=== PATIENT | male | born 1975 | race African-American/Black ===

== ENCOUNTER 2017-07-05 19:41 | Emergency (ER) | payer OTHER, SELFPAY ==
[2017-07-05 21:20] LABS: Bilirubin Negative (Negative); Clarity CLEAR (Clear); Glucose, Urine (Dipstick) Negative (Negative); Leukocyte Small (Negative); Nitrite Negative (Negative); Protein, Urine (Dipstick) Negative (Neg-Trace); Specific Gravity, Urine 1.025 (1.002-1.036)
[2017-07-05 21:22] LABS: Bacteria/HPF None Seen HPF (None Seen); Hyaline Casts/LPF 0-3 HYALINE CAST LPF (0-3 Hyaline); Pathc Cast-AUWi Flag 0.13 (0-2.49); Squamous Epithelial 0-3 HPF (0-3)
[2017-07-05 21:31] LABS: Blood, Urine Trace (Negative); RBC/HPF 0-3 HPF (0-3)
[2017-07-05] MEDS ORDERED: traMADol HCl 50 MG TAB ONE (21:53)
[2017-07-07 22:13] LABS: Chlamydia by PCR Not Detected (NotDetected); GC by PCR Not Detected (NotDetected)
== END 2017-07-05 22:33 | disposition home or self-care (01) ==
LOC: ERS 19:41
DX: M54.5 Low back pain (principal); R31.29 Other microscopic hematuria; F17.210 Nicotine dependence, cigarettes, uncomplicated
CPT/HCPCS: 81003; 81015; 87086; 87491; 87591; 99283

== ENCOUNTER 2017-08-23 15:24 | Emergency (ER) | payer SELFPAY ==
[2017-08-23 16:43] LABS: #Basophils 0.1 thou/uL (0.0-0.2); #Eosinphils 0.2 thou/uL (0.0-0.7); #Lymphocytes 4.3 thou/uL (1.20-3.40); #Monocytes 0.6 thou/uL (0.11-0.59); #Neutrophils 5.8 thou/uL (1.40-6.50); %Basophils 1.2 % (0.0-1.0); %Eosinophils 1.9 % (0.0-10.0); %Monocytes 5.2 % (0.0-10.0); %Neutrophils 52.7 % (42.0-75.0); Mean Corpuscular HGB CONC 33.2 g/dL (32.0-36.0); Mean Corpuscular Hemoglobin 33.2 pg (27.0-31.0); Mean Corpuscular Volume 99.9 fl (80.0-94.0); Mean Platelet Volume 7.6 fL (7.4-10.4); Platelet Count 190 thou/uL (130-400); Red Blood Cell (RBC) Count 5.12 mill/uL (4.70-6.10); White Blood Cell (WBC) Count 10.9 thou/uL (4.8-10.8)
[2017-08-23] MEDS ORDERED: Gabapentin 100 MG CAP PO SCH (16:45)
--- NOTE | 2017-08-23 16:50 | RAD ---
LEFT FOOT THREE VIEWS: 08/23/17 HISTORY: Left foot pain. Cellulitis. COMPARISON: 07/25/16. FINDINGS: Amputation of the big toe is apparent. Lisfranc joint alignment is anatomic. Pes planus is evident on the lateral view. No acute fracture, dislocation, or aggressive osseous erosions are apparent. No soft tissue gas is vi sible. IMPRESSION: Postoperative changes. No evidence of complication. POS: [facility]
[2017-08-23] MEDS ORDERED: Acetaminophen/Codeine 30-300mg Tablet ONE ×2 (16:53→16:57)
[2017-08-23 17:09] LABS: ALT (SGPT) 16 U/L (8-55); AST (SGOT) 15 U/L (5-34); Albumin 4.2 g/dL (3.5-5.0); Alkaline Phosphatase 72 U/L (40-150); Anion Gap 10 mmol/L (10-20); BUN (Urea Nitrogen) 9 mg/dL (8.9-20.6); Bilirubin, Total 0.4 mg/dL (0.2-1.2); Calc. Creatinine Clearance 0 mL/min (70-130); Calcium 9.6 mg/dL (7.8-10.44); Carbon Dioxide 26 mmol/L (22-29); Chloride 105 mmol/L (98-107); Estimated GFR-MDRD Greater than 90; Globulin 3.7 g/dL (2.4-3.5); Glucose 82 mg/dL (70-105); Potassium 3.9 mmol/L (3.5-5.1); Protein, Total 7.9 g/dL (6.0-8.3); Sodium 137 mmol/L (136-145)
== END 2017-08-23 17:33 | disposition home or self-care (01) ==
LOC: ERS 15:24
DX: G62.9 Polyneuropathy, unspecified (principal); I73.9 Peripheral vascular disease, unspecified; F17.210 Nicotine dependence, cigarettes, uncomplicated; Z71.6 Tobacco abuse counseling
CPT/HCPCS: 36415; 80053; 83605; 85025; 99406

== ENCOUNTER 2017-10-03 15:16 | Inpatient (IN) | payer SELFPAY ==
[2017-10-03 16:15] LABS: #Basophils 0.1 thou/uL (0.0-0.2); #Eosinphils 0.2 thou/uL (0.0-0.7); #Lymphocytes 3.8 thou/uL (1.20-3.40); #Monocytes 0.5 thou/uL (0.11-0.59); #Neutrophils 5.3 thou/uL (1.40-6.50); %Basophils 0.8 % (0.0-1.0); %Eosinophils 2.3 % (0.0-10.0); %Lymphocytes 38.2 % (21.0-51.0); %Monocytes 4.7 % (0.0-10.0); %Neutrophils 54.1 % (42.0-75.0); Hemoglobin 16.6 g/dL (14.0-18.0); Mean Corpuscular HGB CONC 33.8 g/dL (32.0-36.0); Mean Corpuscular Hemoglobin 33.1 pg (27.0-31.0); Mean Corpuscular Volume 98.1 fl (80.0-94.0); Platelet Count 190 thou/uL (130-400); RBC Distribution Width 13.3 % (11.5-14.5); White Blood Cell (WBC) Count 9.8 thou/uL (4.8-10.8)
[2017-10-03 16:35] LABS: ALT (SGPT) 11 U/L (8-55); AST (SGOT) 15 U/L (5-34); Albumin 4.3 g/dL (3.5-5.0); Alkaline Phosphatase 70 U/L (40-150); Anion Gap 12 mmol/L (10-20); BUN (Urea Nitrogen) 6 mg/dL (8.9-20.6); Bilirubin, Total 0.4 mg/dL (0.2-1.2); Calc. Creatinine Clearance 0 mL/min (70-130); Calcium 9.7 mg/dL (7.8-10.44); Carbon Dioxide 26 mmol/L (22-29); Chloride 103 mmol/L (98-107); Estimated GFR-MDRD Greater than 90; Globulin 3.3 g/dL (2.4-3.5); Glucose 92 mg/dL (70-105); Potassium 3.7 mmol/L (3.5-5.1); Protein, Total 7.6 g/dL (6.0-8.3); Sodium 137 mmol/L (136-145)
--- NOTE | 2017-10-03 17:07 | RAD ---
THREE VIEWS OF THE LEFT TOES 10/03/17 HISTORY: Pain. FINDINGS: The patient is status post amputation of the great toe at the first metatarsophalangeal joint. There is soft tissue swelling involving the distal aspect of the second toe. On the lateral examinati on, there is soft tissue irregularity at the tip of the distal phalanx of the second toe suggesting a n ulceration. No obvious bone destruction, fracture or dislocation. IMPRESSION: Soft tissue swelling of the second toe distally with probable ulceration. Findings are suspicious for cellulitis. If there is clinical concern for osteomyelitis, MRI of left foot with and without IV con trast advised. POS: [facility]
[2017-10-03] MEDS ORDERED: HYDROcodone/Acetaminophen 5/325 mg Tablet ONE (18:16)
[2017-10-03] MEDS ORDERED: HYDROcodone/Acetaminophen 10/325 mg Tablet PO PRN (19:11)
[2017-10-03] MEDS ORDERED: Morphine 4 MG/ML VIAL SLOW IVP PRN (19:14)
[2017-10-03] MEDS ORDERED: Clindamycin 150 MG CAP PO SCH (21:00)
[2017-10-03] MEDS ORDERED: Morphine 4 MG/ML VIAL ONE (21:36)
[2017-10-03] MEDS ORDERED: Vancomycin HCl 1 GM in Sodium Chloride 0.9% 250 ML 250 ML IVPB SCH (22:00)
--- NOTE | 2017-10-03 22:03 | PDOC.FPRHP ---
- History of Present Illness Chief Complaint: toe pain History of Present Illness: Cortes Villegas is a 42 year old M with PMH of HLD and PVD s/p left great toe amputation and left common iliac stent placed in September [address] Van, CV surgery. He presents with a one month history of left 2nd toe pain. He went ED one month ago, was given course of antibiotics which improved the pain for a short time. The pain has worsened, described as constant, achy pain, worse with ambulation or standing. ED provider was able to obtain cultures from wound on toe. Denies fevers, chills, night sweats. Denies leg pain with exertion. Patient does not have a primary care doctor and does not take any medications. ED Course: Patient received morphine 2 mg - Allergies/Adverse Reactions Allergies Allergy/AdvReac Type Severity Reaction Status Date / Time No Known Allergies Allergy Verified 10/04/17 05:30 - Home Medications Comments: Patient takes no medications. - History PMHx: Hyperlipidemia, PVD PSHx: left common iliac stent and left great toe amputation in September of 2016 FHx: unknown Social: patient has a 20 pack year history, denies alcohol, drug use - Review of Systems General: denies: fever/chills, weight/appetite/sleep changes, night sweats Eyes: denies: eye pain, vision changes ENT: denies: nasal congestion, rhinorrhea Respiratory: denies: cough, congestion, shortness of breath Cardiovascular: denies: chest pain, palpitation, edema, paroxysmal nocturnal dyspnea Gastrointestinal: denies: nausea, vomiting, diarrhea, constipation Genitourinary: denies: incontinence, dysuria, polyuria Skin: denies: rashes, lesions, jaundice Musculoskeletal: reports: pain, tenderness, stiffness, swelling Psychological: denies: anxiety, depression - Vital signs BP: 146/91 HR: 84 RR: 18 Tmax: 98.8 Pox: 97% on RA Wt: 74 kg - Physical Exam Constitutional: NAD, awake, alert and oriented, well developed HEENT: normocephalic and atraumatic, PERRLA, EOMI, conjunctiva clear, no scleral icterus, grossly normal vision, TM's clear and intact, grossly normal hearing, normal nasal mucosa, MMM, oropharynx clear Neck: supple, FROM, trachea midline, no JVD Heart: RRR, normal S1/S2, no murmurs/rubs/gallops Lungs: CTAB, no respiratory distress, good air movement, no rales/rhonchi, no wheezing Abdomen: soft, non-tender, bowel sounds present, no masses/distention Musculoskeletal: normal tone, ROM grossly normal -Musculoskeletal: left great toe amputated. Black eschar on plantar portion of left second toe with tenderness to palpation. No pain with passive movement of toe. Decreased pulses on left lower extremity, normal pulses on right LE Neurological: no focal deficit, CN II-XII intact, normal sensation Skin: no rash/lesions, good turgor Heme/Lymphatic: no unusual bruising or bleeding, no purpura, no petechia Psychiatric: normal mood and affect, good judgment and insight, intact recent and remote memory FMR H&P: Results - Labs Result Diagrams: 10/04/17 04:31 10/04/17 04:31 Lab results: WBC 9.8 thou/uL (4.8-10.8) 10/03/17 16:03 Hgb 16.6 g/dL (14.0-18.0) 10/03/17 16:03 Hct 49.0 % (42.0-52.0) 10/03/17 16:03 MCV 98.1 fl (80.0-94.0) H 10/03/17 16:03 Plt Count 190 thou/uL (130-400) 10/03/17 16:03 Neutrophils % 54.1 % (42.0-75.0) 10/03/17 16:03 Sodium 137 mmol/L (136-145) 10/03/17 16:03 Potassium 3.7 mmol/L (3.5-5.1) 10/03/17 16:03 Chloride 103 mmol/L (98-107) 10/03/17 16:03 Carbon Dioxide 26 mmol/L (22-29) 10/03/17 16:03 BUN 6 mg/dL (8.9-20.6) L 10/03/17 16:03 Creatinine 1.02 mg/dL (0.6-1.3) 10/03/17 16:03 Glucose 92 mg/dL (70-105) 10/03/17 16:03 Calcium 9.7 mg/dL (7.8-10.44) 10/03/17 16:03 Total Bilirubin 0.4 mg/dL (0.2-1.2) 10/03/17 16:03 AST 15 U/L (5-34) 10/03/17 16:03 ALT 11 U/L (8-55) 10/03/17 16:03 Alkaline Phosphatase 70 U/L (40-150) 10/03/17 16:03 Serum Total Protein 7.6 g/dL (6.0-8.3) 10/03/17 16:03 Albumin 4.3 g/dL (3.5-5.0) 10/03/17 16:03 FMR H&P: A/P - Problem List (1) Dry gangrene Current Visit: Yes Status: Acute Code(s): I96 - GANGRENE, NOT ELSEWHERE CLASSIFIED (2) Cellulitis Current Visit: Yes Status: Acute Code(s): L03.90 - CELLULITIS, UNSPECIFIED (3) Peripheral vascular disease Current Visit: Yes Status: Chronic Code(s): I73.9 - PERIPHERAL VASCULAR DISEASE, UNSPECIFIED (4) Tobacco abuse Current Visit: Yes Status: Chronic Code(s): Z72.0 - TOBACCO USE - Plan (1) Dry Gangrene on left second toe: History of PVD s/p left great toe amputation and left common iliac stent placement in 2016, performed by Dr. Van. Admit to medical. Toe appear to have surrounding cellulitis. No evidence of osteomyelitis on imaging. Checking ESR. Start treatment with IV vancomycin. Consult CV surgery in the morning. Ordered Ankle-Brachial Index. Ordered doppler US of left LE. Ordered transcutaneous O2 on left LE. Started patient on statin and asa. Blood cultures pending. (2) Cellulitis of left second toe: Starting tx with IV vancomycin. Wound cultures taken in ED, gram stain showed gram positive cocci in pairs. Culture pending. (3) Peripheral Vascular Disease: Patient has no been taking any medications. Starting high dose statin and aspirin. Checking FLP. (4) Tobacco Abuse: Encouraged cessation (5) Activity: ad lori (6) Diet: NPO at midnight CODE STATUS: FULL CODE FMR H&P: Upper Level - Pertinent history 42 yO AAM with pmhx tobacco abuse & PVD s/p left great toe amputation and left common iliac stent placement 1 year ago who p/w 1 month h/o 2nd toe pain on the left foot. Seen in ED initially 4 wks ago, given bactrim and had initial improvement in pain; however, pain has worsened over the last 2 wks. States it is constant, aching pain and is worse with ambulation. No associated fevers, chills, night sweats, n/v, lymphadenopathy. Denies claudication symptoms. Pt otherwise has not seen a doctor regularly, takes no meds. Unknown Fhx. Social hx sig for 30+ pk yr hx. - Pertinent findings Laboratory Tests 10/03/17 10/03/17 16:03 16:03 WBC 9.8 Hgb 16.6 MCV 98.1 H Plt Count 190 Creatinine 1.02 Estimated GFR (MDRD) Greater than 90 LLE xray- soft tissue edema and ulceration. no obvious signs of osteomyelitis. Sig PE- gen- A&O x 3, nad, well appearing CV- rrr no mrg lungs- ctab abd- soft non-tender LE- non-palpable left post tibial or dorsalis pedis pulse. strong palpable pulses on RLE. no edema or cyanosis. Left 2nd toe with ulceration and black eschar on plantar surface of toe. wound cx performed per ED physician. - Plan Date/Time: 10/03/17 2156 42yo AAM with pmhx PAD s/p stent & amputation p/w- 1) Left 2nd Toe Dry Gangrene- check CHAMP, transcutaneous O2 and arterial US to LLE. concerned w/ nonpalpable pulse to distal LLE and prior h/o amputation & iliac artery stent placement. will consult Dr. Van with CV surgery in am ( performed prior amputation) for recs. start asa, high-intensity statin and will control pain w/ morphine & norco. npo @ mn. 2) Lt toe cellulitis- mild, however appears to be erythematous over 2nd toe with ttp. gram stain in ED shows mod gram (+) cocci in rods, therefore will cover for MRSA with vancomycin. check ESR and if significantly elevated, will consider MRI of foot, however much more suspicious for vascular etiology of LLE wound rather than infectious at this time. 3) Severe PAD s/p stent- concern for additional proximal occlusion. pending further studies. 4) tobacco abuse- counseling department chair re: cessation and offer TD nicotine. 5) h/o HLD- check FLP, however will need high-intensity statin due to CAD equivalent. I, [Leonela Roberto DO ([email or web address])], have evaluated this patient and agree with findings/plan as outlined by biology intern resident. Pertinent changes/additions are listed here. Attending Addendum - Attending Addendum Date/Time: 10/04/17 6920 I personally evaluated the patient and discussed the management with Dr. Diehl on 10/03/17. I agree with the History, Examination, Assessment and Plan documented above with any addition or exceptions noted below. Left 2nd toe with dry gangrene and cellulitis in pt. with previous Left 1st toe amputation for abx's and reeval of vascular status.
[2017-10-03] MEDS ORDERED: Acetaminophen 325 MG TAB PO PRN (22:53)
[2017-10-03] MEDS: HYDROcodone/Acetaminophen 7.5/325 mg Tablet PO SCH (23:22)
[2017-10-03] MEDS: Vancomycin HCl 1 GM in Premix Bag 1 BAG IVPB SCH (23:23)
--- NOTE | 2017-10-03 23:43 | ULT ---
LEFT LOWER EXTREMITY VENOUS ULTRASOUND: 10/03/17 COMPARISON: Left toe radiographs 10/03/17. HISTORY: Left lower extremity dry gangrene. TECHNIQUE: Multiplanar chiu scale and color doppler images were obtained in a left lower extremity arterial ultr asound. Spectral analysis of the doppler waveforms were performed. FINDINGS: There is monophasic waveform in the proximal aspect of the left leg. This includes the common femoral artery, profunda femoral artery, superficial femoral artery and popliteal artery. Monophasic wave fl ow is seen in the posterior tibial artery and dorsalis pedis artery. The anterior tibial artery could not be visualized. IMPRESSION: Abnormal waveforms throughout the left leg suggests more proximal atherosclerotic disease. POS: [facility]
[2017-10-04] MEDS ORDERED: Atorvastatin Calcium 40 MG TAB PO SCH (00:15)
[2017-10-04] MEDS: Morphine 5 MG/ML SYRINGE SLOW IVP PRN ×4 (02:18→20:14)
[2017-10-04] MEDS: Lactated Ringer's 1,000 ML IV SCH ×3 (02:26→15:56)
[2017-10-04 04:44] VITALS: BMI 19.0
[2017-10-04] MEDS: HYDROcodone/Acetaminophen 7.5/325 mg Tablet PO SCH ×4 (05:28→23:55)
[2017-10-04] MEDS: Vancomycin HCl 1 GM in Premix Bag 1 BAG IVPB SCH ×3 (05:29→21:02)
[2017-10-04 05:43] LABS: Anion Gap 10 mmol/L (10-20); BUN (Urea Nitrogen) 9 mg/dL (8.9-20.6); Calc. Creatinine Clearance 107 mL/min (70-130); Calcium 9.2 mg/dL (7.8-10.44); Carbon Dioxide 28 mmol/L (22-29); Cardiac Risk 7.4 (Less than 4.5); Chloride 103 mmol/L (98-107); Cholesterol 163 mg/dl (< 200 Desired); Estimated GFR-MDRD Greater than 90; Glucose 101 mg/dL (70-105); HDL Cholesterol 22 mg/dL (>60 Neg Risk); LDL Cholesterol, Calculated 106 mg/dL; Potassium 3.2 mmol/L (3.5-5.1); Sodium 138 mmol/L (136-145); Triglycerides 173 mg/dL (Less than 150)
[2017-10-04 07:00] LABS: Band 1 % (5-11); Eosinophils 4 % (0-10); Hemoglobin 14.7 g/dL (14.0-18.0); Lymphocytes 40 % (21-51); MDiff Complete? YES; Mean Corpuscular HGB CONC 33.3 g/dL (32.0-36.0); Mean Corpuscular Hemoglobin 33.3 pg (27.0-31.0); Mean Platelet Volume 7.3 fL (7.4-10.4); Monocytes 10 % (0-10); Neutrophil 44 % (42-75); Platelet Count 175 thou/uL (130-400); RBC Distribution Width 13.4 % (11.5-14.5); Red Blood Cell (RBC) Count 4.41 mill/uL (4.70-6.10); White Blood Cell (WBC) Count 7.9 thou/uL (4.8-10.8)
[2017-10-04] MEDS ORDERED: Iopamidol 370 76% 50 ML VIAL FS ONE (07:25)
[2017-10-04] MEDS ORDERED: FLU VACC QS2017-18 36 mo. & older 0.5 ML SYRINGE IM ONE (09:00)
[2017-10-04] MEDS ORDERED: Lidocaine 1% (PF) 30 ML VIAL ONE (09:30)
[2017-10-04] MEDS: Aspirin 81 mg Enteric Coated Tablet PO SCH (09:37)
[2017-10-04] MEDS ORDERED: Midazolam HCl 2 mg/2 ml Vial ONE (10:05)
[2017-10-04] MEDS ORDERED: Fentanyl 100 MCG/2 ML VIAL ONE (10:05)
--- NOTE | 2017-10-04 10:15 | CON ---
DATE OF CONSULTATION: 10/04/2017 HISTORY OF PRESENT ILLNESS: This is a 42-year-old gentleman with a left common iliac stent about 1 y ear ago for a gangrenous left great toe which required amputation. He was seen in my office in [facility] at one point about a month after the procedure and his wound was healing nicely; however, he was on no medications and did not get his medications filled. He was instructed to at least take an aspi rin a day which he has not done. He has been unemployed since that time and has noticed about 2-4 we ek history of pain in the left second toe as well as maybe some discomfort in the foot, which he stat es he rubs. He said he has been unable to stand or ambulate due to discomfort in leg. PAST MEDICAL HISTORY: Dyslipidemia and smoking history with no known hypertension. PAST SURGICAL HISTORY: As noted above. PHYSICAL EXAMINATION: GENERAL: Alert, cooperative gentleman in no acute distress. NECK: No carotid bruits. CARDIAC: Regular rate and rhythm. No gallops or murmur. LUNGS: Clear to auscultation. ABDOMEN: Soft, nontender, no bruits. EXTREMITIES: He has palpable femoral pulses bilaterally. He has palpable right popliteal pulse. He has no left popliteal pulse. He has a Doppler signal in his left dorsalis pedis that is diminished. He has a palpable dorsalis pedis and posterior tibial in the right foot. His left great toe amputa tion site is healed and his left second toe appears slightly dusky. PLAN: The plan at this time is for angiography to assess the status of his previously stented iliac artery.
[2017-10-04] MEDS ORDERED: Heparin 10,000 UNITS/1 ML VIAL ONE (10:32)
[2017-10-04] MEDS ORDERED: Protamine Sulfate 50 MG/5 ML VIAL ONE (10:51)
--- NOTE | 2017-10-04 10:54 | OP ---
DATE OF PROCEDURE: 10/04/2017 PREOPERATIVE DIAGNOSIS: Ischemic rest pain, left foot. 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 PROCEDURES PERFORMED: Iliofemoral angiography with left lower extremity runoff and ANESTHESIOLOGIST PHYSICIAN of the in-shira nt stenosis of the left common iliac artery stent using a 7 x 40 Lutonix drug-eluting balloon. SURGEON: Dr. Van. ANESTHESIA: Versed, fentanyl. ESTIMATED BLOOD LOSS: Minimal. FLUOROSCOPY: 2.3 minutes. CONTRAST: 44 mL. PROCEDURE IN DETAIL: After prepping and draping the left groin, ultrasound guided puncture was perfo rmed after local anesthetic infiltration. Wire was inserted and passed through the stent easily. Fo llowing placement of a 5-[place]ank[place] dilator and sheath, angiography was obtained. Following completion o f this, heparin was given and the 5-[place] was exchanged for a 6 -[place] marker sheath. Retrograde a ngiography and then balloon inflation with completion angiography was performed. Completion angiogra phy showed no residual in-stent stenosis with no change in runoff with a normal common, superficial f emoral, popliteal arteries. The patient had normal runoff via the anterior tibial. Peroneal was pat ent, but did not go to the ankle and posterior tibial never visualized. The patient tolerated the pr ocedure well.
[2017-10-04] MEDS ORDERED: Acetaminophen/Codeine 30-300mg Tablet PO PRN (11:02)
[2017-10-04] MEDS ORDERED: Clopidogrel Bisulfate 75 MG TAB PO SCH (11:15)
[2017-10-04] MEDS ORDERED: Hydrocodone-Acetamin 15 ML UDCUP ONE (11:34)
[2017-10-04] MEDS ORDERED: HYDROcodone/Acetaminophen 7.5/325 mg Tablet ONE (11:35)
[2017-10-04] MEDS ORDERED: Clopidogrel Bisulfate 75 MG TAB ONE (11:51)
--- NOTE | 2017-10-04 15:19 | PDOC.FM ---
- Subjective Subjective: No acute events overnight. Pt has been taken for cath of left iliac vessel which was previously stented by CV surg. Currently he denies pain in the affected area, fever, chills, chest pain, sob, nvdc. Sensation is intact. No other complaints. - Objective Vital Signs & Weight: Vital Signs (12 hours) Temp Pulse Resp BP BP Pulse Ox 10/04/17 14:33 77 16 172/82 H 10/04/17 14:15 98.0 F 72 14 132/76 100 10/04/17 14:00 72 14 132/76 10/04/17 13:15 97.7 F 69 16 138/79 100 10/04/17 13:05 67 14 116/73 10/04/17 12:45 98.1 F 63 14 131/90 131/90 98 10/04/17 12:30 65 14 141/78 H 10/04/17 12:15 97.8 F 70 14 138/79 138/79 96 10/04/17 08:00 97.9 F 70 16 143/83 H 97 10/04/17 04:00 98.1 F 74 18 146/78 H Weight Admit Weight 68.946 kg Weight 68.946 kg I&O: 10/03/17 10/04/17 10/05/17 06:59 06:59 06:59 Intake Total 1300 Balance 1300 Result Diagrams: 10/04/17 04:31 10/04/17 04:31 <Asaf Byrne - Last Filed: 10/04/17 15:21> - Objective Vital Signs & Weight: Vital Signs (12 hours) Temp Pulse Resp BP BP Pulse Ox 10/04/17 14:33 77 16 127/82 10/04/17 14:15 98.0 F 72 14 132/76 100 10/04/17 14:00 72 14 132/76 10/04/17 13:15 97.7 F 69 16 138/79 100 10/04/17 13:05 67 14 116/73 10/04/17 12:45 98.1 F 63 14 131/90 131/90 98 10/04/17 12:30 65 14 141/78 H 10/04/17 12:15 97.8 F 70 14 138/79 138/79 96 10/04/17 08:00 97.9 F 70 16 143/83 H 97 10/04/17 04:00 98.1 F 74 18 146/78 H Weight Admit Weight 68.946 kg Weight 68.946 kg I&O: 10/03/17 10/04/17 10/05/17 06:59 06:59 06:59 Intake Total 1300 Balance 1300 Result Diagrams: 10/04/17 04:31 10/04/17 04:31 <Scottie Lin - Last Filed: 10/04/17 15:59> Phys Exam - Physical Examination Constitutional: NAD HEENT: PERRLA, moist MMs, sclera anicteric Neck: no nodes, no JVD Respiratory: no wheezing, no rales, no rhonchi, clear to auscultation bilateral Cardiovascular: RRR, no significant murmur, no rub Gastrointestinal: soft, non-tender, no distention Musculoskeletal: no edema dr gangrene left 2nd toe, faint dorsalis pedis pulse warm extremity Neurological: non-focal, moves all 4 limbs Skin: no rash <Asaf Byrne - Last Filed: 10/04/17 15:21> Dx/Plan (1) Cellulitis Code(s): L03.90 - CELLULITIS, UNSPECIFIED Status: Acute (2) Dry gangrene Code(s): I96 - GANGRENE, NOT ELSEWHERE CLASSIFIED Status: Acute (3) Peripheral vascular disease Code(s): I73.9 - PERIPHERAL VASCULAR DISEASE, UNSPECIFIED Status: Chronic - Plan Plan: (1) Dry Gangrene on left second toe: Continue IV abx. CV surg has been consulted and performed lt iliac caheterization early today. Will await recommendations. Continue pain control and IV abx for now. (2) Cellulitis of left second toe: Growing S aureus, awaiting sensitivities. Cont vancomycin. (3) Peripheral Vascular Disease: Plavix and statin. <Asaf Byrne - Last Filed: 10/04/17 15:21> Attending Addendum - Attending Addendum Date/Time: 10/04/17 1421 I personally evaluated the patient and discussed the management with Dr. Byrne. I agree with and repeated the History, Examination, Assessment and Plan documented above with any addition or exceptions noted below. <Scottie Lin - Last Filed: 10/04/17 15:59>
[2017-10-04] MEDS: Atorvastatin Calcium 40 MG TAB PO SCH (20:06)
[2017-10-05] MEDS: Morphine 5 MG/ML SYRINGE SLOW IVP PRN ×4 (00:56→19:53)
[2017-10-05] MEDS: Lactated Ringer's 1,000 ML IV SCH ×3 (02:59→17:58)
[2017-10-05] MEDS: Vancomycin HCl 1 GM in Premix Bag 1 BAG IVPB SCH ×3 (05:15→22:08)
[2017-10-05] MEDS: HYDROcodone/Acetaminophen 7.5/325 mg Tablet PO SCH ×4 (05:16→23:52)
[2017-10-05 05:39] LABS: #Eosinphils 0.4 thou/uL (0.0-0.7); #Lymphocytes 3.2 thou/uL (1.20-3.40); #Monocytes 0.6 thou/uL (0.11-0.59); #Neutrophils 3.5 thou/uL (1.40-6.50); %Basophils 0.4 % (0.0-1.0); %Eosinophils 5.2 % (0.0-10.0); %Lymphocytes 41.8 % (21.0-51.0); %Monocytes 7.2 % (0.0-10.0); %Neutrophils 45.5 % (42.0-75.0); Hemoglobin 14.8 g/dL (14.0-18.0); Mean Corpuscular HGB CONC 32.6 g/dL (32.0-36.0); Mean Corpuscular Hemoglobin 32.5 pg (27.0-31.0); Mean Corpuscular Volume 99.8 fl (80.0-94.0); Mean Platelet Volume 7.5 fL (7.4-10.4); Platelet Count 171 thou/uL (130-400); RBC Distribution Width 13.1 % (11.5-14.5); Red Blood Cell (RBC) Count 4.56 mill/uL (4.70-6.10); White Blood Cell (WBC) Count 7.7 thou/uL (4.8-10.8)
[2017-10-05 05:48] LABS: Anion Gap 9 mmol/L (10-20); BUN (Urea Nitrogen) 8 mg/dL (8.9-20.6); Calc. Creatinine Clearance 114 mL/min (70-130); Calcium 9.3 mg/dL (7.8-10.44); Carbon Dioxide 30 mmol/L (22-29); Chloride 104 mmol/L (98-107); Estimated GFR-MDRD Greater than 90; Glucose 81 mg/dL (70-105); Potassium 3.8 mmol/L (3.5-5.1); Sodium 139 mmol/L (136-145)
--- NOTE | 2017-10-05 06:33 | PDOC.FM ---
- Objective Vital Signs & Weight: Vital Signs (12 hours) Temp Pulse Resp BP BP Pulse Ox 10/04/17 23:55 97.9 F 80 18 128/85 100 10/04/17 20:00 98.1 F 60 18 129/81 100 10/04/17 19:15 70 16 124/54 L Weight Admit Weight 68.946 kg Weight 68.946 kg I&O: 10/03/17 10/04/17 10/05/17 06:59 06:59 06:59 Intake Total 4334.4 Output Total 2600 Balance 1734.4 Result Diagrams: 10/05/17 04:47 10/05/17 04:47 <Milli Gu - Last Filed: 10/05/17 06:43> - Objective Vital Signs & Weight: Vital Signs (12 hours) Temp Pulse Resp BP Pulse Ox 10/05/17 07:19 97.8 F 66 16 129/75 100 10/04/17 23:55 97.9 F 80 18 128/85 100 Weight Admit Weight 68.946 kg Weight 68.946 kg I&O: 10/04/17 10/05/17 10/06/17 06:59 06:59 06:59 Intake Total 4334.4 Output Total 2600 Balance 1734.4 Result Diagrams: 10/05/17 04:47 10/05/17 04:47 <Nazario Herzog - Last Filed: 10/05/17 10:11> Dx/Plan - Plan Plan: 1) Left 2nd Toe Dry Gangrene- check CHAMP, transcutaneous O2 and arterial US to LLE. concerned w/ nonpalpable pulse to distal LLE and prior h/o amputation & iliac artery stent placement. will consult Dr. Van with CV surgery in am ( performed prior amputation) for recs. start asa, high-intensity statin and will control pain w/ morphine & norco. npo @ mn. Continue IV abx. CV surg has been consulted and performed lt iliac caheterization early today. Will await recommendations. Continue pain control and IV abx for now. 2) Lt toe cellulitis- mild, however appears to be erythematous over 2nd toe with ttp. gram stain in ED shows mod gram (+) cocci in rods, therefore will cover for MRSA with vancomycin. check ESR and if significantly elevated, will consider MRI of foot, however much more suspicious for vascular etiology of LLE wound rather than infectious at this time.rowing S aureus, awaiting sensitivities. Cont vancomycin. 3) Severe PAD s/p stent- concern for additional proximal occlusion. pending further studies. Plavix and statin. 4) tobacco abuse- student support counselor re: cessation and offer TD nicotine. 5) h/o HLD- check FLP, however will need high-intensity statin due to CAD equivalent. <Milli Gu - Last Filed: 10/05/17 06:43>
[2017-10-05] MEDS: Aspirin 81 mg Enteric Coated Tablet PO SCH (08:58)
[2017-10-05] MEDS: Clopidogrel Bisulfate 75 MG TAB PO SCH (08:58)
--- NOTE | 2017-10-05 10:44 | PDOC.FM ---
- Subjective Subjective: Mr. Villegas was complaining this morning of some pain and pulsations in his toe. He also said he didn't sleep well last night. - Objective MAR Reviewed: Yes Vital Signs & Weight: Vital Signs (12 hours) Temp Pulse Resp BP Pulse Ox 10/05/17 08:00 97.8 F 66 16 100 10/05/17 07:19 97.8 F 66 16 129/75 100 10/04/17 23:55 97.9 F 80 18 128/85 100 Weight Admit Weight 68.946 kg Weight 68.946 kg I&O: 10/04/17 10/05/17 10/06/17 06:59 06:59 06:59 Intake Total 4334.4 Output Total 2600 Balance 1734.4 Result Diagrams: 10/05/17 04:47 10/05/17 04:47 <Milli Gu - Last Filed: 10/05/17 10:48> - Objective Vital Signs & Weight: Vital Signs (12 hours) Temp Pulse Resp BP Pulse Ox 10/05/17 08:00 97.8 F 66 16 100 10/05/17 07:19 97.8 F 66 16 129/75 100 10/04/17 23:55 97.9 F 80 18 128/85 100 Weight Admit Weight 68.946 kg Weight 68.946 kg I&O: 10/04/17 10/05/17 10/06/17 06:59 06:59 06:59 Intake Total 4334.4 Output Total 2600 Balance 1734.4 Result Diagrams: 10/05/17 04:47 10/05/17 04:47 <Mahad Lauren - Last Filed: 10/05/17 11:30> Phys Exam - Physical Examination Constitutional: NAD HEENT: PERRLA Respiratory: no wheezing, no rales, no rhonchi, clear to auscultation bilateral Cardiovascular: RRR, no significant murmur, no rub Gastrointestinal: soft, non-tender, no distention Musculoskeletal: no edema, pulses present left great toe amputation, left second toe dry gangrene Neurological: non-focal, normal sensation Psychiatric: normal affect, A&O x 3 Skin: no rash <Milli Gu - Last Filed: 10/05/17 10:48> Dx/Plan (1) Dry gangrene Code(s): I96 - GANGRENE, NOT ELSEWHERE CLASSIFIED Status: Acute (2) Cellulitis Code(s): L03.90 - CELLULITIS, UNSPECIFIED Status: Acute (3) Status post insertion of iliac artery stent Code(s): Z95.828 - PRESENCE OF OTHER VASCULAR IMPLANTS AND GRAFTS Status: Chronic (4) Amputated toe Code(s): Z89.429 - ACQUIRED ABSENCE OF OTHER TOE(S), UNSPECIFIED SIDE Status: Chronic (5) Tobacco abuse Code(s): Z72.0 - TOBACCO USE Status: Chronic (6) Insomnia Code(s): G47.00 - INSOMNIA, UNSPECIFIED Status: Acute - Plan Plan: 42 yo gentleman with PVD s/p stenting of left common iliac artery and left great toe amputation, admitted for dry gangrene of left second toe. (1) Dry Gangrene on left second toe: -Continue IV abx of vanc. Planning for surgery of the left second toe on Saturday. Continue pain control and IV abx for now. -Culture growing staph aureus sensitive to everything listed but amoxicillin and piperacillin. (2) Cellulitis of left second toe: Cont vancomycin. see gabe. (3) Peripheral Vascular Disease: -He had a stent placed one year ago for a blockage in his left common iliac artery. Yesterday Dr. Van performed a left iliac cath and removed a clot in his left common iliac artery stent. -He has had good pulses overnight. Endorses some pain in his left second toe. Per patient, Dr. Van plans to take him to the OR on Saturday to remove his dry gangrenous second left toe. In the meantime, we will continue the plavix, statin , IV abx, and continue pain control. 4.)Insomnia- Pt says tylenol pm works for him at home. We will give him some atarax prn for sleep. <Milli Gu - Last Filed: 10/05/17 10:48> Attending Addendum - Attending Addendum Date/Time: 10/05/17 3965 I personally evaluated the patient and discussed the management with Dr. Unruly Soriano. I agree with the History, Examination, Assessment and Plan documented above with any addition or exceptions noted below. Patient doing well this morning, complains of some throbbing pain in his leg after revascularization. He is apparently scheduled for toe amputation on Saturday. We will continue Vancomycin at this time for infection, and current dose as vanc trough appropriate. Will need close monitoring to prevent toxicity. Vitals stable. <Mahad Lauren - Last Filed: 10/05/17 11:30>
[2017-10-05] MEDS: Atorvastatin Calcium 40 MG TAB PO SCH (19:53)
[2017-10-05] MEDS: Acetaminophen/Codeine 30-300mg Tablet PO PRN (22:12)
[2017-10-05] MEDS: hydrOXYzine 10 MG TAB PO PRN (22:21)
[2017-10-06] MEDS: Morphine 5 MG/ML SYRINGE SLOW IVP PRN ×3 (01:55→18:58)
[2017-10-06] MEDS: Acetaminophen/Codeine 30-300mg Tablet PO PRN ×3 (04:12→20:23)
[2017-10-06 05:27] LABS: %Lymphocytes 40.5 % (21.0-51.0); %Monocytes 7.8 % (0.0-10.0); %Neutrophils 41.7 % (42.0-75.0); Mean Corpuscular HGB CONC 33.6 g/dL (32.0-36.0); Mean Corpuscular Hemoglobin 33.4 pg (27.0-31.0); Mean Corpuscular Volume 99.5 fl (80.0-94.0); Mean Platelet Volume 7.6 fL (7.4-10.4); Platelet Count 179 thou/uL (130-400); RBC Distribution Width 12.9 % (11.5-14.5); Red Blood Cell (RBC) Count 4.48 mill/uL (4.70-6.10); White Blood Cell (WBC) Count 7.6 thou/uL (4.8-10.8)
[2017-10-06 05:28] LABS: #Basophils 0.1 thou/uL (0.0-0.2); #Eosinphils 0.7 thou/uL (0.0-0.7); #Lymphocytes 3.1 thou/uL (1.20-3.40); #Monocytes 0.6 thou/uL (0.11-0.59); #Neutrophils 3.2 thou/uL (1.40-6.50); %Basophils 1.4 % (0.0-1.0); %Eosinophils 8.6 % (0.0-10.0)
[2017-10-06 05:43] LABS: Anion Gap 10 mmol/L (10-20); BUN (Urea Nitrogen) 8 mg/dL (8.9-20.6); Calc. Creatinine Clearance 110 mL/min (70-130); Calcium 9.6 mg/dL (7.8-10.44); Carbon Dioxide 29 mmol/L (22-29); Chloride 104 mmol/L (98-107); Estimated GFR-MDRD Greater than 90; Glucose 81 mg/dL (70-105); Potassium 3.9 mmol/L (3.5-5.1); Sodium 139 mmol/L (136-145)
[2017-10-06] MEDS: HYDROcodone/Acetaminophen 7.5/325 mg Tablet PO SCH ×4 (05:48→23:22)
[2017-10-06] MEDS: Vancomycin HCl 1 GM in Premix Bag 1 BAG IVPB SCH ×3 (05:49→22:28)
--- NOTE | 2017-10-06 06:50 | PDOC.FM ---
- Subjective Subjective: No acute events overnight. Mr. Villegas is complaining of some pain this morning in his toe. We talked about the norco and morphine he has prn that he can ask for when he has pain. - Objective MAR Reviewed: Yes Vital Signs & Weight: Vital Signs (12 hours) Temp Pulse Resp BP Pulse Ox 10/05/17 19:28 98.5 F 79 18 116/62 98 Weight Admit Weight 68.946 kg Weight 68.946 kg I&O: 10/04/17 10/05/17 10/06/17 06:59 06:59 06:59 Intake Total 4334.4 2632.6 Output Total 2600 3565 Balance 1734.4 -932.4 Result Diagrams: 10/06/17 03:55 10/06/17 03:55 <Milli Gu - Last Filed: 10/06/17 07:15> - Objective Vital Signs & Weight: Vital Signs (12 hours) Temp Pulse Resp BP Pulse Ox 10/06/17 08:00 98.1 F 63 18 129/72 98 Weight Admit Weight 68.946 kg Weight 68.946 kg I&O: 10/05/17 10/06/17 10/07/17 06:59 06:59 06:59 Intake Total 4334.4 2632.6 Output Total 2600 3565 Balance 1734.4 -932.4 Result Diagrams: 10/06/17 03:55 10/06/17 03:55 <Mahad Lauren - Last Filed: 10/06/17 10:35> Phys Exam - Physical Examination Constitutional: NAD HEENT: PERRLA, moist MMs Respiratory: no wheezing, no rales, no rhonchi, clear to auscultation bilateral Cardiovascular: RRR, no significant murmur, no rub Gastrointestinal: soft, non-tender, no distention, positive bowel sounds Musculoskeletal: no edema, pulses present Neurological: non-focal, normal sensation Psychiatric: normal affect, A&O x 3 Skin: no rash <Milli Gu - Last Filed: 10/06/17 07:15> Dx/Plan (1) Dry gangrene Code(s): I96 - GANGRENE, NOT ELSEWHERE CLASSIFIED Status: Acute (2) Cellulitis Code(s): L03.90 - CELLULITIS, UNSPECIFIED Status: Acute (3) Status post insertion of iliac artery stent Code(s): Z95.828 - PRESENCE OF OTHER VASCULAR IMPLANTS AND GRAFTS Status: Chronic (4) Amputated toe Code(s): Z89.429 - ACQUIRED ABSENCE OF OTHER TOE(S), UNSPECIFIED SIDE Status: Chronic (5) Tobacco abuse Code(s): Z72.0 - TOBACCO USE Status: Chronic (6) Insomnia Code(s): G47.00 - INSOMNIA, UNSPECIFIED Status: Acute - Plan Plan: 42 yo gentleman with PVD s/p stenting of left common iliac artery and left great toe amputation, admitted for dry gangrene of left second toe. (1) Dry Gangrene on left second toe: -Continue IV abx of vanc. Planning for surgery of the left second toe on Saturday. Continue pain control and IV abx for now. NPO @ midnight -Culture growing staph aureus sensitive to everything listed but amoxicillin and piperacillin. (2) Cellulitis of left second toe: Cont vancomycin. see above. (3) Peripheral Vascular Disease: -He had a stent placed one year ago for a blockage in his left common iliac artery that was found to have a new blockage by . -He has good pulses bilaterally in his feet this am. Endorses some pain in his left second toe. Per patient, Dr. Van plans to take him to the OR on Saturday to remove his dry gangrenous second left toe. In the meantime, we will continue the plavix, statin, IV abx, and continue pain control. NPO @ midnight. 4.)Insomnia- We will give him some atarax prn for sleep. <Milli Gu - Last Filed: 10/06/17 07:15> Attending Addendum - Attending Addendum Date/Time: 10/06/17 1034 I personally evaluated the patient and discussed the management with Dr. Unruly Soriano. I agree with the History, Examination, Assessment and Plan documented above with any addition or exceptions noted below. Patient doing well, has some mild pain in his toe that is controlled with oral medication. Awaiting surgery with CV surg tomorrow. Continue antibiotics with monitoring as needed. <Mahad Lauren - Last Filed: 10/06/17 10:35>
[2017-10-06] MEDS: Clopidogrel Bisulfate 75 MG TAB PO SCH (07:46)
[2017-10-06] MEDS: Aspirin 81 mg Enteric Coated Tablet PO SCH (07:47)
[2017-10-06] MEDS: Lactated Ringer's 1,000 ML IV SCH ×3 (11:45→17:48)
[2017-10-06] MEDS: Atorvastatin Calcium 40 MG TAB PO SCH (20:23)
[2017-10-06] MEDS: Atorvastatin Calcium 20 MG TAB PO SCH (21:17)
[2017-10-06 22:24] LABS: Vancomycin, Trough 18.7 ug/mL
[2017-10-06] MEDS: hydrOXYzine 10 MG TAB PO PRN (23:22)
[2017-10-07] MEDS: Morphine 5 MG/ML SYRINGE SLOW IVP PRN ×2 (00:26→04:14)
[2017-10-07] MEDS: Lactated Ringer's 1,000 ML IV SCH ×3 (04:14→17:14)
[2017-10-07 05:04] LABS: #Basophils 0.1 thou/uL (0.0-0.2); #Eosinphils 0.8 thou/uL (0.0-0.7); #Lymphocytes 3.2 thou/uL (1.20-3.40); #Monocytes 0.6 thou/uL (0.11-0.59); #Neutrophils 3.9 thou/uL (1.40-6.50); %Basophils 0.9 % (0.0-1.0); %Eosinophils 9.5 % (0.0-10.0); %Lymphocytes 37.4 % (21.0-51.0); %Monocytes 6.6 % (0.0-10.0); %Neutrophils 45.6 % (42.0-75.0); Hemoglobin 15.4 g/dL (14.0-18.0); Mean Corpuscular HGB CONC 33.2 g/dL (32.0-36.0); Mean Corpuscular Volume 99.4 fl (80.0-94.0); Mean Platelet Volume 7.6 fL (7.4-10.4); Platelet Count 183 thou/uL (130-400); RBC Distribution Width 12.8 % (11.5-14.5); Red Blood Cell (RBC) Count 4.67 mill/uL (4.70-6.10); White Blood Cell (WBC) Count 8.6 thou/uL (4.8-10.8)
[2017-10-07] MEDS: HYDROcodone/Acetaminophen 7.5/325 mg Tablet PO SCH ×3 (05:12→17:13)
[2017-10-07] MEDS: Vancomycin HCl 1 GM in Premix Bag 1 BAG IVPB SCH ×3 (05:13→20:23)
[2017-10-07 05:29] LABS: Anion Gap 11 mmol/L (10-20); BUN (Urea Nitrogen) 9 mg/dL (8.9-20.6); Calc. Creatinine Clearance 113 mL/min (70-130); Calcium 9.6 mg/dL (7.8-10.44); Carbon Dioxide 27 mmol/L (22-29); Chloride 104 mmol/L (98-107); Estimated GFR-MDRD Greater than 90; Glucose 81 mg/dL (70-105); Potassium 3.8 mmol/L (3.5-5.1); Sodium 138 mmol/L (136-145)
--- NOTE | 2017-10-07 07:59 | ULT ---
LOWER EXTREMITY ARTERIAL EVALUATION USING DOPPLER WAVEFORM ANALYSIS AND SEGMENTAL LIMB PRESSURES: Examination of the right leg reveals normal Doppler waveforms at the femoral, popliteal, posterior ti bial and dorsalis pedis level. Ankle-arm index is 1.11. Examination of the left leg demonstrates diminished waveforms at the popliteal, posterior tibial, hattie salis pedis level with an ankle-arm index of 0.7. 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
[2017-10-07] MEDS ORDERED: Morphine 4 MG/ML VIAL ONE (08:09)
[2017-10-07] MEDS ORDERED: Fentanyl 100 MCG/2 ML VIAL ONE (08:45)
[2017-10-07] MEDS ORDERED: Midazolam HCl 2 mg/2 ml Vial ONE (08:45)
[2017-10-07] MEDS ORDERED: Famotidine/PF 20 mg/2ml Vial ONE (08:45)
[2017-10-07] MEDS ORDERED: Ondansetron HCl/PF 4 MG/2 ML Vial IVP PRN (09:32)
[2017-10-07] MEDS ORDERED: Promethazine HCl 25 MG/ML VIAL SLOW IVP PRN (09:32)
[2017-10-07] MEDS: Aspirin 81 mg Enteric Coated Tablet PO SCH (10:17)
[2017-10-07] MEDS: Clopidogrel Bisulfate 75 MG TAB PO SCH (10:17)
--- NOTE | 2017-10-07 10:42 | OP ---
DATE OF PROCEDURE: 10/07/2017 PREOPERATIVE DIAGNOSIS: Painful gangrene, left second toe. PROCEDURE: Amputation left second toe. SURGEON: Dr. Beau Van ANESTHESIA: General LMA. PROCEDURE: After adequate anesthesia had been obtained, the patient was prepped and draped. Circula r incision was made in the mid portion of the second toe below the gangrenous changes. Tissue appear ed clean viable. Bone was divided and then rongeured proximally. Two Nylon sutures were then used t o close the skin. The patient tolerated the procedure well.
[2017-10-07] MEDS ORDERED: Ondansetron HCl/PF 4 MG/2 ML Vial ONE (10:48)
[2017-10-07] MEDS ORDERED: PROPOFOL 200 MG/20 ML VIAL ONE (10:48)
[2017-10-07] MEDS ORDERED: Lidocaine 1% PF 5 ML VIAL ONE (10:48)
[2017-10-07] MEDS ORDERED: Ketorolac Tromethamine 30 MG/ML VIAL ONE (10:48)
--- NOTE | 2017-10-07 15:59 | PDOC.FM ---
- Subjective Subjective: No acute events overnight. Pt was taken to OR this AM to have amputation of lt second toe. Tolerated procedure well. Tolerating PO and has had BM/urinated after surgery. denies cp, sob, nvdc. Has mild pain at surgical site. - Objective Vital Signs & Weight: Vital Signs (12 hours) Temp Pulse Resp BP Pulse Ox 10/07/17 12:00 98.4 F 64 18 118/57 L 99 10/07/17 10:10 98 F 66 16 146/89 H 98 10/07/17 08:00 98.4 F 60 18 124/75 98 10/07/17 07:38 98.4 F 60 18 124/75 98 10/07/17 07:30 98.4 F 60 18 Weight Admit Weight 68.946 kg Weight 68.946 kg I&O: 10/06/17 10/07/17 10/08/17 06:59 06:59 06:59 Intake Total 2632.6 2773 Output Total 3565 4500 Balance -932.4 -6424 Result Diagrams: 10/07/17 04:23 10/07/17 04:23 <Asaf Byrne - Last Filed: 10/07/17 15:57> - Objective Vital Signs & Weight: Vital Signs (12 hours) Temp Pulse Resp BP Pulse Ox 10/07/17 12:00 98.4 F 64 18 118/57 L 99 10/07/17 10:10 98 F 66 16 146/89 H 98 10/07/17 08:00 98.4 F 60 18 124/75 98 10/07/17 07:38 98.4 F 60 18 124/75 98 10/07/17 07:30 98.4 F 60 18 Weight Admit Weight 68.946 kg Weight 68.946 kg I&O: 10/06/17 10/07/17 10/08/17 06:59 06:59 06:59 Intake Total 2632.6 2773 Output Total 3565 4500 Balance -932.4 -5037 Result Diagrams: 10/07/17 04:23 10/07/17 04:23 <Mahad Lauren - Last Filed: 10/07/17 16:21> Phys Exam - Physical Examination Constitutional: NAD HEENT: PERRLA, sclera anicteric Neck: no nodes, no JVD Respiratory: no wheezing, no rales, no rhonchi, clear to auscultation bilateral Cardiovascular: RRR, no significant murmur, no rub Gastrointestinal: soft, non-tender, no distention, positive bowel sounds Musculoskeletal: no edema, pulses present dressing in place over lt foot Neurological: non-focal Skin: no rash <Asaf Byrne - Last Filed: 10/07/17 15:57> Dx/Plan (1) Cellulitis Code(s): L03.90 - CELLULITIS, UNSPECIFIED Status: Acute (2) Dry gangrene Code(s): I96 - GANGRENE, NOT ELSEWHERE CLASSIFIED Status: Acute (3) Peripheral vascular disease Code(s): I73.9 - PERIPHERAL VASCULAR DISEASE, UNSPECIFIED Status: Chronic - Plan Plan: (1) Dry Gangrene on left second toe: -Continue IV abx of vanc. Pt had surgery today. Will cont IV abx for now and await CV surg recs -Pain control per CV surg -Likely ok for DC tomorrow, but will await CV surg recs (2) Cellulitis of left second toe: Cont vancomycin. (3) Peripheral Vascular Disease: -Prior lt iliac stent prior and recently re-canalized with good result. Pt has good pulses of b/l LE and normal color and temperature. -s/p amputation of left 2nd toe -Likely ok for DC tomorrow, but will await CV surg recs. <Asaf Byrne - Last Filed: 10/07/17 15:57> Attending Addendum - Attending Addendum Date/Time: 10/07/17 1621 I personally evaluated the patient and discussed the management with Dr. Byrne. I agree with the History, Examination, Assessment and Plan documented above with any addition or exceptions noted below. Patient doing well after surgery. Continue pain control as needed. Continue IV abx. Further mgmt per CV surg but likely nearing point of discharge. <Mahad Lauren - Last Filed: 10/07/17 16:21>
[2017-10-07] MEDS: Atorvastatin Calcium 20 MG TAB PO SCH (20:22)
[2017-10-07] MEDS: Acetaminophen/Codeine 30-300mg Tablet PO PRN (20:22)
[2017-10-08] MEDS: HYDROcodone/Acetaminophen 7.5/325 mg Tablet PO SCH ×3 (00:09→12:12)
[2017-10-08] MEDS: Lactated Ringer's 1,000 ML IV SCH (00:10)
[2017-10-08] MEDS: Acetaminophen/Codeine 30-300mg Tablet PO PRN ×2 (04:00→09:00)
[2017-10-08] MEDS: Vancomycin HCl 1 GM in Premix Bag 1 BAG IVPB SCH (05:46)
--- NOTE | 2017-10-08 08:32 | PDOC.FM ---
- Subjective Subjective: No acute events overnight. Pt seen by cv surg this AM who states pt is ready for DC home. Will go home on aspirin plavix, statin. Pt ambulating, tolerating PO, pain is well controlled. No fever, chills, sweats, nvdc, cp, sob. - Objective Vital Signs & Weight: Vital Signs (12 hours) Temp Pulse Resp BP Pulse Ox 10/08/17 07:58 98.6 F 71 18 131/71 96 Weight Admit Weight 68.946 kg Weight 68.946 kg I&O: 10/07/17 10/08/17 10/09/17 06:59 06:59 06:59 Intake Total 2773 2240 Output Total 4500 750 Balance -1727 1490 Result Diagrams: 10/07/17 04:23 10/07/17 04:23 <Asaf Byrne - Last Filed: 10/08/17 08:30> - Objective Vital Signs & Weight: Vital Signs (12 hours) Temp Pulse Resp BP Pulse Ox 10/08/17 08:00 98.6 F 71 18 96 10/08/17 07:58 98.6 F 71 18 131/71 96 Weight Admit Weight 68.946 kg Weight 68.946 kg I&O: 10/07/17 10/08/17 10/09/17 06:59 06:59 06:59 Intake Total 2773 2240 Output Total 4500 750 Balance -1727 1490 Result Diagrams: 10/07/17 04:23 10/07/17 04:23 <Mahad Lauren - Last Filed: 10/08/17 10:50> Phys Exam - Physical Examination Constitutional: NAD HEENT: PERRLA, sclera anicteric Neck: no nodes, no JVD Respiratory: no wheezing, no rales, no rhonchi, clear to auscultation bilateral Cardiovascular: RRR, no significant murmur, no rub Gastrointestinal: soft, non-tender, no distention, positive bowel sounds Musculoskeletal: no edema, pulses present s/p amputation of lt 2nd toe, foot warm with good color, palpable pulses Neurological: non-focal, moves all 4 limbs Skin: no rash <Asaf Byrne - Last Filed: 10/08/17 08:30> Dx/Plan (1) Cellulitis Code(s): L03.90 - CELLULITIS, UNSPECIFIED Status: Acute (2) Dry gangrene Code(s): I96 - GANGRENE, NOT ELSEWHERE CLASSIFIED Status: Acute (3) Peripheral vascular disease Code(s): I73.9 - PERIPHERAL VASCULAR DISEASE, UNSPECIFIED Status: Chronic - Plan Plan: (1) Dry Gangrene on left second toe: -Pain control per cv surg -pt abx can be dc'd as he is s/p amputation of lt 2nd toe -per cv surg, pt ok for dc to home today -will need aspirin plavix and statin and f/u with cv surg in 2-3 weeks. (2) Cellulitis of left second toe: s/p amputation of lt 2nd toe -no need for cont abx -dc to home with f/u in 2-3 weeks w/ cv surg (3) Peripheral Vascular Disease: -Prior lt iliac stent prior and recently re-canalized with good result. Pt has good pulses of b/l LE and normal color and temperature. -s/p amputation of left 2nd toe -stable for dc to home today -cont aspirin, plavix and statin per cv surg <Asaf Byrne - Last Filed: 10/08/17 08:30> Attending Addendum - Attending Addendum Date/Time: 10/08/17 1049 I personally evaluated the patient and discussed the management with Dr. Byrne. I agree with the History, Examination, Assessment and Plan documented above with any addition or exceptions noted below. Patient denies complaints this morning. He is stable for discharge from our standpoint as well as CV surgery. He will be discharged on ASA, Plavix, and a statin to help prevent further vascular loss in his extremities. He has completed a 5 day course of abx and will defer on further treatment since the source has been resolved. Follow up with [facility] and Dr. Van outpatient. <Mahad Lauren - Last Filed: 10/08/17 10:50>
[2017-10-08] MEDS: Aspirin 81 mg Enteric Coated Tablet PO SCH (08:59)
[2017-10-08] MEDS: Clopidogrel Bisulfate 75 MG TAB PO SCH (08:59)
[2017-10-08 12:51] VITALS: BP 126/73; TEMP 98.4
== END 2017-10-08 13:36 | disposition home or self-care (01) | DRG 253 ==
LOC: ERS 15:16 → T4-B 18:43
PROVIDERS: ADMIT Student in an Organized Health Care Education/Training Program; ATTEND Student in an Organized Health Care Education/Training Program
PROC: 047D3Z1 Dilation of Left Common Iliac Artery using Drug-Coated Balloon, Percutaneous Approach (ICD-10-PCS; 2017-10-04)
PROC: B41D1ZZ Fluoroscopy of Aorta and Bilateral Lower Extremity Arteries using Low Osmolar Contrast (ICD-10-PCS; 2017-10-04)
PROC: 0Y6S0Z2 Detachment at Left 2nd Toe, Mid, Open Approach (ICD-10-PCS; principal; 2017-10-07)
DX: T50.906A Underdosing of unspecified drugs, medicaments and biological substances, initial encounter; Z23 Encounter for immunization; L03.032 Cellulitis of left toe; G47.00 Insomnia, unspecified; Z89.412 Acquired absence of left great toe; F17.210 Nicotine dependence, cigarettes, uncomplicated; I70.262 Atherosclerosis of native arteries of extremities with gangrene, left leg; E78.5 Hyperlipidemia, unspecified; T39.016A Underdosing of aspirin, initial encounter; T82.856A Stenosis of peripheral vascular stent, initial encounter
CPT/HCPCS: 36415; 37220; 76942; 80048; 80053; 80061; 80202; 84145; 84443; 85025; 85347; 85652; 87040; 87070; 87077; 87186; 87205; 90471; 90682; 93922; 93923; 96374; 99152; 99153; J2270; C1769; G0008; J1644; J1885; J2001; J2250; J2405; J2704; J2720; J3010; J3370; Q2036; S0028

== ENCOUNTER 2018-05-13 19:42 | Emergency (ER) | payer SELFPAY ==
[2018-05-13] MEDS ORDERED: Ketorolac Tromethamine 30 MG/ML VIAL ONE (20:50)
[2018-05-13] MEDS ORDERED: Dexamethasone 10 MG/ML VIAL ONE (20:50)
[2018-05-13] MEDS ORDERED: cefTRIAXone\\ROCEPHIN 1 GM VIAL ONE (21:08)
[2018-05-13 21:16] LABS: #Basophils 0.1 thou/uL (0.0-0.2); #Eosinphils 0.3 thou/uL (0.0-0.7); #Lymphocytes 3.2 thou/uL (1.20-3.40); #Neutrophils 9.9 thou/uL (1.40-6.50); %Basophils 0.5 % (0.0-1.0); %Eosinophils 1.8 % (0.0-10.0); %Lymphocytes 21.9 % (21.0-51.0); %Monocytes 6.9 % (0.0-10.0); %Neutrophils 68.8 % (42.0-75.0); Hemoglobin 13.4 g/dL (14.0-18.0); Mean Corpuscular Hemoglobin 33.2 pg (27.0-31.0); Mean Corpuscular Volume 97.7 fL (78.0-98.0); Mean Platelet Volume 7.6 fL (7.4-10.4); Platelet Count 289 thou/uL (130-400); RBC Distribution Width 12.3 % (11.5-14.5); Red Blood Cell (RBC) Count 4.04 mill/uL (4.70-6.10); White Blood Cell (WBC) Count 14.4 thou/uL (4.8-10.8)
[2018-05-13 21:40] LABS: ALT (SGPT) 7 U/L (8-55); AST (SGOT) 11 U/L (5-34); Albumin 3.2 g/dL (3.5-5.0); Alkaline Phosphatase 67 U/L (40-150); Anion Gap 12 mmol/L (10-20); BUN (Urea Nitrogen) 13 mg/dL (8.9-20.6); Bilirubin, Total 0.3 mg/dL (0.2-1.2); Calc. Creatinine Clearance 0 mL/min (70-130); Calcium 8.7 mg/dL (7.8-10.44); Carbon Dioxide 24 mmol/L (22-29); Chloride 103 mmol/L (98-107); Estimated GFR-MDRD Greater than 90; Globulin 3.8 g/dL (2.4-3.5); Glucose 93 mg/dL (70-105); Potassium 3.6 mmol/L (3.5-5.1); Sodium 135 mmol/L (136-145)
--- NOTE | 2018-05-13 21:59 | RAD ---
CHEST PA AND LATERAL: 05/13/18 HISTORY: 43-year-old male with history of cough, chills, bodyaches, feeling bad. Confluent alveolar parenchymal process in the right lower lobe, evidence for pneumonia. Heart size is within normal limits. The left lung is clear. IMPRESSION: Confluent right lower lobe pneumonia. Treatment and followup over several weeks to document complete clearing. POS: [facility]
== END 2018-05-13 23:00 | disposition home or self-care (01) ==
LOC: ERS 19:42
DX: J18.9 Pneumonia, unspecified organism (principal); F17.210 Nicotine dependence, cigarettes, uncomplicated
CPT/HCPCS: 71046; 80053; 85025; 87804; 96365; 96375; J0696; J1100; J1885

== ENCOUNTER 2018-09-01 21:33 | Inpatient (IN) | payer SELFPAY ==
[~2018-09-01 21:33] MED LIST: ISOVUE-370 76%-LOCM 1 ML ONE
[2018-09-01 22:10] LABS: #Basophils 0.1 thou/uL (0.0-0.2); #Eosinphils 0.2 thou/uL (0.0-0.7); #Lymphocytes 3.7 thou/uL (1.20-3.40); #Monocytes 0.6 thou/uL (0.11-0.59); #Neutrophils 4.2 thou/uL (1.40-6.50); %Basophils 1.5 % (0.0-1.0); %Eosinophils 2.8 % (0.0-10.0); %Lymphocytes 41.6 % (21.0-51.0); %Monocytes 6.2 % (0.0-10.0); %Neutrophils 47.9 % (42.0-75.0); Hemoglobin 16.8 g/dL (14.0-18.0); Mean Corpuscular HGB CONC 32.5 g/dL (32.0-36.0); Mean Corpuscular Hemoglobin 32.6 pg (27.0-31.0); Mean Platelet Volume 7.7 fL (7.4-10.4); Platelet Count 241 thou/uL (130-400); RBC Distribution Width 12.9 % (11.5-14.5); Red Blood Cell (RBC) Count 5.16 mill/uL (4.70-6.10); White Blood Cell (WBC) Count 8.8 thou/uL (4.8-10.8)
[2018-09-01 22:23] LABS: Prothrombin Time 13.7 SEC (12.0-14.7)
[2018-09-01] MEDS ORDERED: Morphine 4 MG/ML VIAL ONE (22:24)
[2018-09-01] MEDS ORDERED: Morphine 2 MG/ML SYRINGE ONE (22:25)
[2018-09-01 22:36] LABS: ALT (SGPT) 10 U/L (8-55); AST (SGOT) 10 U/L (5-34); Albumin 3.9 g/dL (3.5-5.0); Alkaline Phosphatase 67 U/L (40-150); Anion Gap 13 mmol/L (10-20); BUN (Urea Nitrogen) 12 mg/dL (8.9-20.6); Bilirubin, Total 0.2 mg/dL (0.2-1.2); Calc. Creatinine Clearance 0 mL/min (70-130); Calcium 9.7 mg/dL (7.8-10.44); Carbon Dioxide 26 mmol/L (22-29); Chloride 103 mmol/L (98-107); Estimated GFR-MDRD Greater than 90; Globulin 3.6 g/dL (2.4-3.5); Glucose 113 mg/dL (70-105); Potassium 3.9 mmol/L (3.5-5.1); Protein, Total 7.5 g/dL (6.0-8.3); Sodium 138 mmol/L (136-145)
--- NOTE | 2018-09-01 22:52 | RAD ---
LEFT FOOT THREE VIEWS: History: Pain. Prior amputation of first and second digits. Comparison: 08-23-17 FINDINGS: Prior exam showed amputation of the first digit at the MTP joint. The current exam shows subsequent amputation of the second digit at the mid shaft of the proximal pha lanx. No other osseous abnormality. No evidence of bony erosion or fracture. IMPRESSION: Prior amputations of the first and second digits as described. No other osseous abnormality. POS: [facility]
--- NOTE | 2018-09-01 23:06 | CT ---
CT ABDOMEN AND PELVIS AND LOWER EXTREMITIES: Technique: Multiple contiguous axial images were obtained through the abdomen and pelvis and bilatera l lower extremities with multiplanar reconstructions and 3D post processing. Indication: Left lower extremity pain with decrease pulses at left foot. FINDINGS: Abdominal aorta is normal caliber with normal opacification with no evidence of aneurysm or dissectio n. The aortic branches including celiac artery, superior mesenteric artery and renal arteries appear unremarkable. Aortic bifurcation is patent. There is a iliac stent in the left common iliac which is patent. Bilateral internal and external iliacs are patent. Bilateral femoral arteries and superficial femoral arteries are patent and unremarkable. Bilateral popliteal arteries are unremarkable. On the right there is trifurcation below the knee space. The perioneal artery occludes at midcalf but reconstitutes distally. The anterior tibial artery and posterior tibial artery are patent through th e foot on the right. On the left popliteal trifurcates below the knee. Marketing Professor tibial artery occludes in the midcalf. The a nterior tibial and peroneal arteries occlude above the ankle. Soft tissues unremarkable. IMPRESSION: 1. Left common iliac stent is patent. 2. On the left there is an occlusion below the knee as described above. POS: [facility]
[2018-09-02] MEDS ORDERED: Morphine 2 MG/ML SYRINGE ONE ×2 (03:16→08:02)
[2018-09-02] MEDS ORDERED: Ondansetron PF 4 MG/2 ML Vial IVP PRN (05:31)
[2018-09-02] MEDS ORDERED: Morphine 4 MG/ML VIAL SLOW IVP PRN ×2 (05:31→12:46)
[2018-09-02] MEDS ORDERED: HYDROcodone/Acetaminophen 5/325 mg Tablet PO PRN ×3 (05:31→09:32)
[2018-09-02] MEDS ORDERED: Acetaminophen 325 MG TAB PO PRN (05:31)
[2018-09-02] MEDS ORDERED: HYDROcodone/Acetaminophen 5/325 mg Tablet ONE (05:36)
--- NOTE | 2018-09-02 05:57 | HP ---
PRIMARY CARE PHYSICIAN: None. CHIEF COMPLAINT: Left foot pain. HISTORY OF PRESENT ILLNESS: The patient is a 43-year-old male with past medical history of peripheral vascular disease and amputation of his first and second left foot toe, presents to the emergency department for left foot pain, which has been worsening. The patient reports that he had an accident and after that he has wounds in his toe, which were nonhealing. They had to amputate the first toe and then subsequently since the wound was not improving, they had to amputate the second left toe as well too. The patient is not taking any medication at this point. The patient does not have followup with surgery. The patient denies any recent trauma at this point. The patient reports dull, aching pain in his foot. PAST MEDICAL HISTORY: 1. Peripheral vascular disease. 2. Smoking. 3. Amputation of his toes. PAST SURGICAL HISTORY: 1. Bilateral iliac artery stents. 2. Surgical history of orthopedic surgery, left toe amputations. SOCIAL HISTORY: The patient smokes 3 to 4 Black and Mild every day. Denies any alcohol or drugs. FAMILY HISTORY: The patient is unsure about his family history. MEDICATIONS: The patient is not taking any medication at this point. REVIEW OF SYSTEMS: A 10-point review of system other than mentioned in the HPI. LABORATORY DATA: WBC 8.8, hemoglobin 16.6, hematocrit 51.8, and platelets 241. PT 13.7, INR 1.0, and PTT 29. Chemistry: 138 sodium, potassium 3.9, chloride 103, carbon dioxide 26, BUN 12, creatinine 1.06, and glucose 113. DIAGNOSTIC STUDIES: CT angio angiogram aorta and bilateral runoff, is significant for aortic bifurcation is patent. There is an iliac stent in the left common iliac, which is patent. Bilateral internal and external iliacs were patent. Bilateral femoral artery and superficial femoral arteries are patent and unremarkable. Bilateral popliteal arteries are unremarkable. On the right, there is trifurcation below the knee space, the peroneal artery occluded mid calf but reconstitute distally. The anterior tibial artery and posterior tibial artery are patent through the foot on the right. On the left popliteal trifurcates below the knee. Posterior tibial artery occludes in the mid calf. The anterior tibial and peroneal arteries are occluded above the knee. Soft tissue unremarkable. PHYSICAL EXAMINATION: VITAL SIGNS: Blood pressure 135/80, pulse 84, respiration rate 16, temperature 98.7, and O2 saturation 100% on room air. GENERAL: Alert, in no acute distress. HEENT: Head, atraumatic. Ears, nose, and throat, no exudate, bleeding, or discharge noted. NECK: No lymphadenopathy. CARDIOVASCULAR: Regular rate and rhythm. No murmur, rubs, or gallops. PULMONARY: Clear bilaterally. No wheezes. ABDOMEN: Soft and nontender. Bowel sounds positive. EXTREMITIES: Right lower extremity, no edema noted. No rashes or swelling. Pulses are intact in left lower extremity, no edema. The patient has an amputation of his first and second toe of his foot. The foot appears to be colder compared to the right foot. Unable to hear pulses even with Doppler. Pulses were appreciated at the femoral region with the Doppler. The patient does have pain with movement and has limited pain. NEUROLOGIC: Alert. SKIN: No rashes noted. ASSESSMENT AND PLAN: 1. Peripheral vascular disease with arterial occlusion. 2. History of smoking. 3. The patient's left foot pain, likely due to occlusion as mentioned in the CTA. Vascular surgery Dr. Kirby was consulted by ER. Will have pain control medication and IV fluid at this point. 4. Given patient's history of smoking, differential diagnosis includes Buerger disease. The patient was strongly counseled on to stop smoking. I have ordered hypercoag and AI workup 5. The patient is full code. 6. Medical [id number], mother. 7. Deep vein thrombosis prophylaxis holding at this point, as it is possible that the patient may go to OR. Job ID: [id number] [facility]
[2018-09-02 06:36] LABS: PTT 29.5 SEC (22.9-36.1); Prothrombin Time 13.4 SEC (12.0-14.7)
--- NOTE | 2018-09-02 07:57 | CON ---
DATE OF CONSULTATION: 09/02/2018 HISTORY OF PRESENT ILLNESS: Mr. Villegas is a 43-year-old gentleman, who has had multiple vascular procedures. He has had a left common iliac 7-mm stent placed previously. This was subsequently post dilated for a recurrent stenosis. At that time, he had normal SFA, popliteal, and proximal tibial runoff. The peroneal artery was occluded in the mid calf. The posterior tibial artery was occluded at its origin. Anterior tibial had good runoff down to the termination of the angiogram site, which was just above the ankle. He presents with about a half-week history of left foot pain. He chose to come to the emergency department in the middle of the night last night. He has a good palpable femoral pulse bilaterally. On the right, his popliteal, posterior tibial, and dorsalis pedis pulses are palpable. On the left, I think I can palpate his popliteal artery. The posterior tibial and dorsalis pedis arteries are nonpalpable. I cannot find a Doppler signal. His foot is cool but not markedly so. He has good venous engorgement of his foot. PAST MEDICAL HISTORY: 1. Peripheral vascular disease. 2. Tobacco abuse. PAST SURGICAL HISTORY: Toe amputations on the left. CURRENT MEDICATIONS: None. ALLERGIES: NONE. SOCIAL HISTORY: He continues to smoke. PHYSICAL EXAMINATION: GENERAL: This is a thin young man, resting comfortably, asleep on the bed in the emergency room. VITAL SIGNS: His heart rate is 60 and regular, blood pressure is 130/72. LUNGS: Clear bilaterally. HEART: Rhythm is regular. ABDOMEN: Soft and nontender. EXTREMITIES: As described above. VASCULAR: As described above. 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 His anterior tibial artery may have recently occluded. CT angiogram that was obtained does not show the distal tibial arteries on the left - this may be due to timing or may actually be tibial artery disease of significance. I think he warrants getting angiograms. The posterior tibial and peroneal arteries are chronically occluded. The anterior tibial artery will be interesting to see the flow distal to his ankle inside. Job ID: [id number]
[2018-09-02] MEDS: Sodium Chloride 0.9% 1,000 ML IV SCH ×2 (10:10→17:02)
[2018-09-02] MEDS ORDERED: Iopamidol 370 76% 50 ML VIAL FS ONE (10:31)
[2018-09-02 11:13] VITALS: BMI 17.3
[2018-09-02] MEDS ORDERED: Heparin 10,000 UNITS/1 ML VIAL ONE (11:37)
[2018-09-02] MEDS ORDERED: Protamine Sulfate 50 MG/5 ML VIAL ONE (12:07)
[2018-09-02 12:17] LABS: Factor VIII Test 170.8 % ACTIVE (56-157)
[2018-09-02 12:53] LABS: ANA Symphony (Qualitative) Negative (Negative); ANA Symphony (Quantitative) 0.3 Ratio (< 0.7 Negative); Cardiolipin IgA Ab 4.4 APL-U/mL (<14 Negative); Cardiolipin IgG Ab 1.6 GPL-U/mL (<10 Negative); EliA APS New Method **** NEW METHOD ****; EliA RAS New Method **** NEW METHOD ****; EliA Thy New Method **** NEW METHOD ****; EliA Vaculitis New Method **** NEW METHOD ****; Mitochondrial Ab 0.6 U/mL (<4 Negative); Rheumatoid Factor IgA Antibody 4.4 IU/mL (<14 Negative); Rheumatoid Factor IgM Antibody 0.6 IU/mL (<3.5 Negative); Scleroderma-70 IgG Antibody Less than 0.6 EliAU/mL (<7 Negative); Thyroid Peroxidase IgG Ab Less than 4.0 IU/mL (<25 Normal); beta-2-Glycoprotein I IgA Ab 2.5 U/mL (<7 Negative); beta-2-Glycoprotein I IgG Ab 1.5 U/mL (<7 Negative); beta-2-Glycoprotein I IgM Abs Less than 2.9 U/mL (<7 Negative)
[2018-09-02 15:23] LABS: DRVVT Confirm 36.1; DRVVT Screen 37.3 SEC (20-50); HEX PHOS LA Tube 1 52.2 SEC; HEX PHOS LA Tube 2 48.9 SEC; Hexagonal Phospholipid Neut 3.3 SEC (0-8.0)
[2018-09-02 15:26] LABS: Protein C Activity 127 % (78-152)
--- NOTE | 2018-09-02 15:47 | PDOC.PN ---
- Subjective Encounter Start Date: 09/02/18 Encounter Start Time: 15:46 Mr. Villegas was seen today in follow-up of ischemic foot pain on the left foot. He is back from his procedure, and says he continues to have some pain in the left foot. He denies any chest pain or difficulty breathing. - Objective Resuscitation Status - Order Detail: 09/02/18 05:03 Resuscitation Status Routine Resuscitation Status: FULL: Full Resuscitation MAR Reviewed: Yes Vital Signs & Weight: Vital Signs (12 hours) Temp Pulse Resp BP Pulse Ox 09/02/18 12:27 97.9 F 72 17 165/86 H 98 09/02/18 09:30 98.2 F 71 17 128/78 98 Weight Weight 138 lb 14.4 oz Result Diagrams: 09/01/18 22:00 09/01/18 22:00 Phys Exam - Physical Examination HEENT: PERRLA Respiratory: no wheezing, no rales, no rhonchi, clear to auscultation bilateral Cardiovascular: RRR, no significant murmur, no rub Gastrointestinal: soft, non-tender, no distention, positive bowel sounds Musculoskeletal: no edema pulses are absent on the left foot, and the toes are cooler than forefoot pulses are present on the right, and the foot is warm Neurological: non-focal, moves all 4 limbs Dx/Plan (1) Ischemic pain of left foot Code(s): M79.672 - PAIN IN LEFT FOOT; I99.9 - UNSPECIFIED DISORDER OF CIRCULATORY SYSTEM Status: Acute (2) Peripheral vascular disease Code(s): I73.9 - PERIPHERAL VASCULAR DISEASE, UNSPECIFIED Status: Chronic (3) Tobacco abuse Code(s): Z72.0 - TOBACCO USE Status: Chronic - Plan * Ischemic pain of the left foot- patient went for arteriogram and HEALTHCARE ECONOMICS MANAGER of the left lower extremity * Await further recommendations from the Vascular Surgeon * Peripheral Vascular disease- likely from smoking- and discussed this with the patient- will check a fasting lipid panel in the AM * Tobacco abuse- discussed smoking cessation.
[2018-09-02 16:20] VITALS: BP 144/60; TEMP 98
[2018-09-02 17:37] LABS: Medtox Reader # READER 4
[2018-09-02 17:38] LABS: Amphetamine Not Detected (NotDetected); Barbiturates Screen Not Detected (NotDetected); Benzodiazepine Screen Not Detected (NotDetected); Cocaine Metabolite Screen Not Detected (NotDetected); Medtox Control Line Valid? VALID (VALID); Methadone Not Detected (NotDetected); Methamphetamine Not Detected (NotDetected); Opiate Screen Not Detected (NotDetected); Oxycodone Screen Not Detected (NotDetected); Phencyclidine (PCP) Not Detected (NotDetected); THC/Cannabinoid Screen Not Detected (NotDetected); Tricyclic Screen Not Detected (NotDetected)
--- NOTE | 2018-09-03 01:16 | DIS ---
DATE OF ADMISSION: 09/02/2018 DATE OF DISCHARGE: 09/02/2018 PRIMARY CARE PHYSICIAN: Dr. Shireen Schmidt. DISCHARGE DISPOSITION: Home. DISCHARGE DIAGNOSES: 1. Ischemic pain of the left foot. 2. Peripheral vascular disease. 3. Tobacco abuse. DISCHARGE MEDICATIONS: Include [place] 10/325 one tablet q.4 as needed for pain. PROCEDURES DONE DURING THE ADMISSION: The patient had an arteriogram with an attempt at angioplasty and stent placement. However, this was unsuccessful due to arterial collapse in the tibial and peroneal angioplasty. The patient also had a CT angiogram with runoff showing a posterior tibial artery which occludes at the mid calf and then the anterior tibial and peroneal arteries occluded above the ankle. CODE STATUS: Full code. ALLERGIES: NO KNOWN DRUG ALLERGIES. HOSPITAL COURSE: Mr. Villegas is a pleasant 43-year-old gentleman who was admitted to the hospital after he was experiencing severe pain in the left foot. He has known peripheral vascular disease. In the ER, it was noted that the foot was cool to palpation as well as he had absent dorsalis pedis and posterior tibial pulses. A CT angiogram was done with runoff of the lower extremity showing an occlusion of the posterior tibial and peroneal arteries. CV surgery was consulted to see if there was any possibility at revascularization. He underwent an arteriogram with an attempt at balloon angioplasty of the peroneal and posterior tibial arteries. However, the arteries collapsed and they were unable to revascularize that area. The patient does not have any area of gangrene primarily or there was no evidence of any skin breakdown. However, he does have significant ischemic pain. Therefore, he will be discharged home now. He has been advised to stop smoking. He will need to check a lipid panel as well and followup with Vascular Surgery in the outpatient setting. Job ID: [id number]
--- NOTE | 2018-09-03 08:49 | OP ---
DATE OF PROCEDURE: 09/02/2018 PREOPERATIVE DIAGNOSIS: Ischemic symptoms, left foot. PROCEDURE PERFORMED: Left lower extremity angiography with COMMUNITY DEVELOPMENT COORDINATOR left distal anterior tibial. ANESTHESIA: 1% lidocaine. DESCRIPTION OF PROCEDURE: After prepping and draping in the left groin, ultrasound-guided antegrade puncture of the left common femoral artery was carried out. Wire advanced into the superficial femoral artery. A Taran catheter was then advanced and runoff was obtained. Following this, the patient was heparinized and the Luge wire was then advanced into the anterior tibial artery and distally as far as it would go. A 2 x 100 balloon was then used to dilate the distal anterior tibial artery in 3 occasions. Completion angiography showed no significant change from preoperative studies. FINDINGS: The patient had normal common, deep, superficial and femoral and popliteal arteries. The trifurcation demonstrated an absent posterior tibial, patent peroneal that dissipated normally above the ankle. The anterior tibial was patent to about the mid calf, where there was slow flow and no distal flow. No flow was visualized in the foot. Following angioplasty, there was no significant change in the level of flow down the anterior tibial artery. Contrast was 40 mL and fluoroscopy 7.8 minute. Job ID: [id number]
[2018-09-03] MEDS ORDERED: Aspirin 81 mg Enteric Coated Tablet PO SCH (09:00)
== END 2018-09-02 20:14 | disposition home or self-care (01) | DRG 254 ==
LOC: ERS 21:33 → 2NO 09-02 08:20
PROVIDERS: ADMIT Family Medicine; ATTEND Family Medicine
PROC: 047Q3ZZ Dilation of Left Anterior Tibial Artery, Percutaneous Approach (ICD-10-PCS; principal; 2018-09-02)
PROC: B41G1ZZ Fluoroscopy of Left Lower Extremity Arteries using Low Osmolar Contrast (ICD-10-PCS; 2018-09-02)
DX: I77.9 Disorder of arteries and arterioles, unspecified (principal); I73.9 Peripheral vascular disease, unspecified; F17.210 Nicotine dependence, cigarettes, uncomplicated; Z89.412 Acquired absence of left great toe; Z89.422 Acquired absence of other left toe(s); Z98.890 Other specified postprocedural states; Z71.6 Tobacco abuse counseling
CPT/HCPCS: 36415; 37228; 75635; 80053; 80306; 81241; 83516; 83520; 85025; 85240; 85250; 85300; 85303; 85305; 85347; 85598; 85610; 85613; 85652; 85730; 86038; 86140; 86146; 86147; 86160; 86225; 86235; 86376; 86850; 86900; 86901; C1725; C1769; J1644; J2270; J2720; Q9966; Q9967

== ENCOUNTER 2018-09-03 19:57 | Emergency (ER) | payer SELFPAY ==
[2018-09-03] MEDS ORDERED: Morphine 4 MG/ML VIAL ONE (20:50)
== END 2018-09-03 22:06 | disposition home or self-care (01) ==
LOC: ERS 19:57
DX: M25.562 Pain in left knee (principal); F17.210 Nicotine dependence, cigarettes, uncomplicated; Z79.891 Long term (current) use of opiate analgesic
CPT/HCPCS: 96374; J2270

== ENCOUNTER 2018-09-10 21:20 | Emergency (ER) | payer SELFPAY ==
--- NOTE | 2018-09-10 21:59 | RAD ---
THREE VIEWS LEFT FOOT: 09/10/18 HISTORY: Toe ulcer. COMPARISON: 09/01/18. FINDINGS: Stable amputation of the first and second digit. Lisfranc alignment is maintained. Joint spaces are p reserved. There is stable mild bone demineralization. There is stable ulceration and erosion of the d istal phalanx of the fifth digit. No radiographic evidence of osteomyelitis. No significant interval change. IMPRESSION: No significant interval change. Stable ulceration of the distal phalanx of the fifth digit. POS: [facility]
[2018-09-10] MEDS ORDERED: HYDROcodone/Acetaminophen 5/325 mg Tablet ONE (22:04)
[2018-09-10 22:38] LABS: #Basophils 0.1 thou/uL (0.0-0.2); #Eosinphils 0.2 thou/uL (0.0-0.7); #Lymphocytes 3.1 thou/uL (1.20-3.40); #Monocytes 0.4 thou/uL (0.11-0.59); #Neutrophils 5.6 thou/uL (1.40-6.50); %Basophils 1.2 % (0.0-1.0); %Eosinophils 1.8 % (0.0-10.0); %Lymphocytes 32.7 % (21.0-51.0); %Monocytes 4.6 % (0.0-10.0); %Neutrophils 59.7 % (42.0-75.0); Hemoglobin 16.4 g/dL (14.0-18.0); Mean Corpuscular HGB CONC 33.5 g/dL (32.0-36.0); Mean Corpuscular Hemoglobin 33.4 pg (27.0-31.0); Mean Corpuscular Volume 99.6 fL (78.0-98.0); Mean Platelet Volume 7.4 fL (7.4-10.4); Platelet Count 285 thou/uL (130-400); RBC Distribution Width 13.1 % (11.5-14.5); Red Blood Cell (RBC) Count 4.91 mill/uL (4.70-6.10); White Blood Cell (WBC) Count 9.4 thou/uL (4.8-10.8)
[2018-09-10 22:59] LABS: ALT (SGPT) 9 U/L (8-55); AST (SGOT) 16 U/L (5-34); Albumin 3.8 g/dL (3.5-5.0); Alkaline Phosphatase 72 U/L (40-150); Anion Gap 14 mmol/L (10-20); BUN (Urea Nitrogen) 12 mg/dL (8.9-20.6); Bilirubin, Total 0.3 mg/dL (0.2-1.2); Calc. Creatinine Clearance 0 mL/min (70-130); Calcium 9.8 mg/dL (7.8-10.44); Carbon Dioxide 25 mmol/L (22-29); Chloride 105 mmol/L (98-107); Estimated GFR-MDRD Greater than 90; Globulin 3.7 g/dL (2.4-3.5); Glucose 146 mg/dL (70-105); Potassium 3.7 mmol/L (3.5-5.1); Protein, Total 7.5 g/dL (6.0-8.3); Sodium 140 mmol/L (136-145)
== END 2018-09-10 22:43 | disposition home or self-care (01) ==
LOC: ERS 21:20
DX: G89.29 Other chronic pain (principal); M79.672 Pain in left foot; I73.9 Peripheral vascular disease, unspecified; F17.210 Nicotine dependence, cigarettes, uncomplicated
CPT/HCPCS: 36415; 80053; 85025

== ENCOUNTER 2018-09-19 05:52 | Inpatient (IN) | payer SELFPAY ==
[2018-09-18 11:42] VITALS: BMI 17.4
[2018-09-19] MEDS ORDERED: Fentanyl 100 MCG/2 ML VIAL ONE ×6 (06:40→09:11)
[2018-09-19] MEDS ORDERED: Midazolam HCl 2 mg/2 ml Vial ONE (06:50)
[2018-09-19] MEDS ORDERED: Gabapentin 300 MG CAP ONE (06:52)
[2018-09-19 06:53] LABS: #Basophils 0.1 thou/uL (0.0-0.2); #Eosinphils 0.1 thou/uL (0.0-0.7); #Monocytes 0.6 thou/uL (0.11-0.59); #Neutrophils 7.9 thou/uL (1.40-6.50); %Basophils 0.9 % (0.0-1.0); %Lymphocytes 25.8 % (21.0-51.0); %Monocytes 5.5 % (0.0-10.0); %Neutrophils 66.9 % (42.0-75.0); Hemoglobin 15.7 g/dL (14.0-18.0); Mean Corpuscular HGB CONC 32.8 g/dL (32.0-36.0); Mean Corpuscular Hemoglobin 31.8 pg (27.0-31.0); Mean Corpuscular Volume 96.9 fL (78.0-98.0); Mean Platelet Volume 7.6 fL (7.4-10.4); Platelet Count 288 thou/uL (130-400); RBC Distribution Width 12.8 % (11.5-14.5); Red Blood Cell (RBC) Count 4.94 mill/uL (4.70-6.10); White Blood Cell (WBC) Count 11.8 thou/uL (4.8-10.8)
[2018-09-19] MEDS ORDERED: Bupivacaine 0.25% HCL 30 ML VIAL ONE (06:57)
[2018-09-19 07:10] LABS: Anion Gap 13 mmol/L (10-20); BUN (Urea Nitrogen) 8 mg/dL (8.9-20.6); Calc. Creatinine Clearance 108 mL/min (70-130); Calcium 9.9 mg/dL (7.8-10.44); Carbon Dioxide 26 mmol/L (22-29); Chloride 102 mmol/L (98-107); Estimated GFR-MDRD Greater than 90; Glucose 102 mg/dL (70-105); Potassium 3.3 mmol/L (3.5-5.1); Sodium 138 mmol/L (136-145)
[2018-09-19] MEDS ORDERED: HYDROmorphone 2 MG/ML VIAL SLOW IVP PRN (08:35)
[2018-09-19] MEDS ORDERED: Ondansetron HCl/PF 4 MG/2 ML Vial IVP PRN (08:35)
[2018-09-19] MEDS ORDERED: Morphine Sulfate 2 MG/ML SYRINGE SLOW IVP PRN (08:35)
[2018-09-19] MEDS ORDERED: Sodium Chloride 0.9% 1,000 ML IV SCH (09:45)
[2018-09-19] MEDS ORDERED: Fentanyl 100 MCG/2 ML VIAL SLOW IVP PRN (09:45)
[2018-09-19] MEDS ORDERED: Senokot S 8.6-50 MG TAB PO SCH ×2 (09:45→11:00)
[2018-09-19] MEDS ORDERED: HYDROcodone/Acetaminophen 10/325 mg Tablet PO PRN (09:45)
[2018-09-19] MEDS ORDERED: Aspirin 81 mg Enteric Coated Tablet PO SCH ×2 (09:45→10:45)
[2018-09-19] MEDS ORDERED: Ondansetron ODT 4 MG TAB PO PRN (09:45)
[2018-09-19] MEDS ORDERED: Famotidine 20 MG TAB PO SCH ×2 (09:45→11:00)
[2018-09-19] MEDS ORDERED: Ibuprofen 200 MG TAB PO PRN (09:45)
[2018-09-19] MEDS ORDERED: Gabapentin 300 MG CAP PO SCH ×2 (09:45→11:00)
[2018-09-19] MEDS ORDERED: Bisacodyl 5 MG TAB PO PRN (09:45)
--- NOTE | 2018-09-19 10:39 | OP ---
DATE OF PROCEDURE: 09/19/2018 PREOPERATIVE DIAGNOSIS: Gangrene, left foot. PROCEDURE PERFORMED: Left below-knee amputation. ANESTHESIA: General block. ESTIMATED BLOOD LOSS: 100 to 200. DESCRIPTION OF PROCEDURE: After adequate anesthesia had been obtained, the left leg was prepped and draped marked with skin marker and an incision was made with posterior flap. Incising down to the tibia, it was divided proximal to the skin incision and then the fibula was equally divided about 1 cm more proximal. Posterior flap was completed with the amputation knife. Following hemostasis control, the wound was thoroughly irrigated and closed with Vicryl suture reapproximating the gastrocnemius muscle over the tibia. Skin was closed with a stapler, and the patient's leg was then wrapped and placed in a knee immobilizer and to be taken to the recovery room in guarded condition. Job ID: [id number]
[2018-09-19] MEDS: Ketorolac Tromethamine 30 MG/ML VIAL IVP SCH ×3 (12:04→23:42)
[2018-09-19] MEDS ORDERED: CEFAZOLIN 2 GM in Premix Bag 1 BAG IVPB SCH (14:00)
[2018-09-19] MEDS: Gabapentin 300 MG CAP PO SCH ×2 (16:26→20:59)
[2018-09-19] MEDS: HYDROcodone/Acetaminophen 10/325 mg Tablet PO PRN ×2 (16:32→20:56)
[2018-09-19] MEDS ORDERED: Bupivacaine HCl 0.5%/Epinephrine 1:200,000/PF 30 ml Vial ONE (16:33)
[2018-09-19] MEDS ORDERED: Bupivacaine/Epinephrine 0.25% 30 ML VIAL ONE (16:33)
[2018-09-19] MEDS ORDERED: PROPOFOL 200 MG/20 ML VIAL ONE (17:02)
[2018-09-19] MEDS ORDERED: Ondansetron PF 4 MG/2 ML Vial ONE (17:02)
[2018-09-19] MEDS ORDERED: Lidocaine 1% PF 5 ML VIAL ONE (17:02)
[2018-09-19] MEDS: CEFAZOLIN 2 GM in Premix Bag 1 BAG IVPB SCH (18:17)
[2018-09-19] MEDS: Senokot S 8.6-50 MG TAB PO SCH (20:58)
[2018-09-19] MEDS: Famotidine 20 MG TAB PO SCH (20:59)
[2018-09-19] MEDS: Zolpidem Tartrate 5 MG TAB PO PRN (21:49)
[2018-09-20] MEDS: CEFAZOLIN 2 GM in Premix Bag 1 BAG IVPB SCH (00:29)
[2018-09-20] MEDS: HYDROcodone/Acetaminophen 10/325 mg Tablet PO PRN ×5 (03:56→21:21)
[2018-09-20] MEDS: Ketorolac Tromethamine 30 MG/ML VIAL IVP SCH ×3 (05:59→17:50)
[2018-09-20] MEDS: Enoxaparin Sodium 30 MG/0.3 ML SYRINGE SC SCH (08:12)
[2018-09-20] MEDS: Famotidine 20 MG TAB PO SCH ×2 (08:12→21:22)
[2018-09-20] MEDS: Gabapentin 300 MG CAP PO SCH ×3 (08:12→21:21)
[2018-09-20] MEDS: Senokot S 8.6-50 MG TAB PO SCH ×2 (08:12→21:21)
[2018-09-20] MEDS: Aspirin 81 mg Enteric Coated Tablet PO SCH (08:12)
[2018-09-21] MEDS: HYDROcodone/Acetaminophen 10/325 mg Tablet PO PRN ×6 (00:52→20:44)
[2018-09-21] MEDS: Ketorolac Tromethamine 30 MG/ML VIAL IVP SCH ×4 (00:53→17:19)
[2018-09-21] MEDS: Senokot S 8.6-50 MG TAB PO SCH ×2 (08:55→20:43)
[2018-09-21] MEDS: Famotidine 20 MG TAB PO SCH ×2 (08:55→20:43)
[2018-09-21] MEDS: Aspirin 81 mg Enteric Coated Tablet PO SCH (08:55)
[2018-09-21] MEDS: Gabapentin 300 MG CAP PO SCH ×3 (08:55→20:43)
[2018-09-21] MEDS: Enoxaparin Sodium 30 MG/0.3 ML SYRINGE SC SCH (08:56)
[2018-09-21] MEDS: Ibuprofen 200 MG TAB PO PRN ×2 (17:20→20:43)
[2018-09-22] MEDS: HYDROcodone/Acetaminophen 10/325 mg Tablet PO PRN ×6 (01:44→21:57)
[2018-09-22] MEDS: Ibuprofen 200 MG TAB PO PRN ×5 (01:44→21:57)
[2018-09-22] MEDS: Gabapentin 300 MG CAP PO SCH ×3 (08:11→21:56)
[2018-09-22] MEDS: Senokot S 8.6-50 MG TAB PO SCH ×2 (08:11→21:57)
[2018-09-22] MEDS: Aspirin 81 mg Enteric Coated Tablet PO SCH (08:11)
[2018-09-22] MEDS: Famotidine 20 MG TAB PO SCH ×2 (08:11→21:56)
[2018-09-22] MEDS: Enoxaparin Sodium 30 MG/0.3 ML SYRINGE SC SCH (08:11)
[2018-09-23] MEDS: Ibuprofen 200 MG TAB PO PRN ×4 (02:44→20:24)
[2018-09-23] MEDS: HYDROcodone/Acetaminophen 10/325 mg Tablet PO PRN ×5 (02:44→20:25)
[2018-09-23] MEDS: Zolpidem Tartrate 5 MG TAB PO PRN ×2 (02:46→22:17)
[2018-09-23] MEDS: Senokot S 8.6-50 MG TAB PO SCH ×2 (09:27→20:24)
[2018-09-23] MEDS: Enoxaparin Sodium 30 MG/0.3 ML SYRINGE SC SCH (09:28)
[2018-09-23] MEDS: Aspirin 81 mg Enteric Coated Tablet PO SCH (09:28)
[2018-09-23] MEDS: Famotidine 20 MG TAB PO SCH ×2 (09:28→20:26)
[2018-09-23] MEDS: Gabapentin 300 MG CAP PO SCH ×3 (09:28→20:26)
[2018-09-24] MEDS: Zolpidem Tartrate 5 MG TAB PO PRN ×2 (00:20→23:29)
[2018-09-24] MEDS: Ibuprofen 200 MG TAB PO PRN ×5 (00:23→18:49)
[2018-09-24] MEDS: HYDROcodone/Acetaminophen 10/325 mg Tablet PO PRN ×6 (00:24→23:29)
[2018-09-24] MEDS: Famotidine 20 MG TAB PO SCH ×2 (08:54→20:27)
[2018-09-24] MEDS: Enoxaparin Sodium 30 MG/0.3 ML SYRINGE SC SCH (08:54)
[2018-09-24] MEDS: Aspirin 81 mg Enteric Coated Tablet PO SCH (08:54)
[2018-09-24] MEDS: Senokot S 8.6-50 MG TAB PO SCH ×2 (08:54→20:27)
[2018-09-24] MEDS: Gabapentin 300 MG CAP PO SCH ×3 (08:54→20:27)
[2018-09-25] MEDS: HYDROcodone/Acetaminophen 10/325 mg Tablet PO PRN (06:03)
[2018-09-25] MEDS: Senokot S 8.6-50 MG TAB PO SCH (09:24)
[2018-09-25] MEDS: Aspirin 81 mg Enteric Coated Tablet PO SCH (09:24)
[2018-09-25] MEDS: Enoxaparin Sodium 30 MG/0.3 ML SYRINGE SC SCH (09:24)
[2018-09-25] MEDS: Famotidine 20 MG TAB PO SCH (09:24)
[2018-09-25] MEDS: Gabapentin 300 MG CAP PO SCH (09:25)
[2018-09-25 11:32] VITALS: BP 146/82; TEMP 98.7
--- NOTE | 2018-09-25 11:57 | DIS ---
DATE OF ADMISSION: 09/19/2018 DATE OF DISCHARGE: 09/25/2018 HISTORY OF PRESENT ILLNESS: A 43-year-old gentleman with gangrenous changes in his foot and severe wrist pain for the prior 2 to 3 weeks, admitted for left BKA, which was performed. He did well in the hospital. Due to funding issues, he was not eligible for SNU or rehab and was kept in the hospital additional time to allow arrangements to be made for him to go home. He will be discharged today with [place] 10/325 as well as Ambien for sleep. He is to resume his aspirin at home as well as atorvastatin 10 mg. There has been some issues with noncompliance in the past and likely will continue. Discharge and followup instructions were given. Job ID: [id number]
== END 2018-09-25 12:25 | disposition home or self-care (01) | DRG 241 ==
LOC: SURG A 05:52
PROVIDERS: ADMIT Thoracic Surgery (Cardiothoracic Vascular Surgery); ATTEND Thoracic Surgery (Cardiothoracic Vascular Surgery)
PROC: 0Y6J0Z1 Detachment at Left Lower Leg, High, Open Approach (ICD-10-PCS; principal; 2018-09-19)
DX: I70.262 Atherosclerosis of native arteries of extremities with gangrene, left leg (principal); I96 Gangrene, not elsewhere classified
CPT/HCPCS: 80048; 85025; 88307; 88311; 90471; 90686; G0008; J0670; J0690; J1650; J1885; J2001; J2250; J2405; J2704; J3010; L8440; S0020

== ENCOUNTER 2023-06-04 04:29 | Emergency (ER) | payer OTHER, SELFPAY ==
[2023-06-04] MEDS ORDERED: Gabapentin 100 MG CAP ONE (05:31)
== END 2023-06-04 05:33 | disposition home or self-care (01) ==
LOC: ERS 04:29
DX: G57.91 Unspecified mononeuropathy of right lower limb (principal); F17.290 Nicotine dependence, other tobacco product, uncomplicated
CPT/HCPCS: 99283

== ENCOUNTER 2023-07-03 18:49 | Emergency (ER) | payer OTHER | END 2023-07-03 21:00 | disposition home or self-care (01) | LOC: ERS 18:49 | DX: L03.031 Cellulitis of right toe (principal); F17.210 Nicotine dependence, cigarettes, uncomplicated | CPT/HCPCS: 99283 ==